=== PATIENT | female | born 1945 | race Caucasian/White ===

== ENCOUNTER → 2017-04-09 | Outpatient (CLI) | payer OTHER, MEDICARE ==
[~2017-04-09] MED LIST: AMARYL4 MG PO; AMITRIPTYLINE H25 M2 PO; AMITRIPTYLINE H25 M3 PO; ASPIRIN325 PO; BENADRYL25 MG PO; BENZEDREX NS; CENTRUM SILVER1 EAC1 PO; CENTRUM SILVER1 EAC4 PO; COMPOUND TOP; CVS OMEGA-3 KR1 EACH PO; DIABETA 5MG TABL5 MG PO; DIFLUCAN150 MG PO; DOXYCYCLINE 10100 MG PO; DULCOLAX STOOL100 MG PO; DULERA 100 MCG/13 GM INH; ENOXAPARIN40 MG/0.1 SUBQ; EXCEDRIN CAPLE1 EACH PO; FLECAINIDE ACET50 M1 PO; FLONASE 0.05%50 MCG NASAL; HUMALOG100 UNIT/1 SUBQ; HYDROCODON-ACE1 EAC5 PO; IBUPROFEN 200200 M1 PO; INVANZ1 GM IV; KEFLEX500 MG PO; LANTUS SUBQ; LOSARTAN-HCTZ1 EAC1 PO; METHYLPREDNISOLO4 M1 PO; MOBIC7.5 MG PO; MUCINEX DM ER1 EACH; MUCINEX TA600 MG/TA2 PO; NEURONTIN 300300 M1 PO; NYSTATIN 1100000 U/M PO; PERCOCET PO; PRADAXA150 MG PO; PROTONIX40 M1 PO; SAVELLA100 MG PO; SAVELLA50 MG PO; TYLENOL325 MG PO; VENTOLIN HFA 1818 GM; VITAMIN D31000 UNI2 PO; ZYRTEC10 M5 PO; [UNRECOGNIZED DRUG - OTHER]
== END ==
LOC: CAT 07:54
DX: I27.2 Other secondary pulmonary hypertension (principal); R06.09 Other forms of dyspnea; M79.605 Pain in left leg; M79.89 Other specified soft tissue disorders

== ENCOUNTER → 2017-04-14 | Outpatient (CLI) | payer OTHER, MEDICARE | LOC: MRI 08:25 | DX: S86.012A Strain of left Achilles tendon, initial encounter (principal); X58.XXXA Exposure to other specified factors, initial encounter; Y93.89 Activity, other specified; Y92.89 Other specified places as the place of occurrence of the external cause; Y99.8 Other external cause status ==

== ENCOUNTER → 2017-06-04 | Outpatient (CLI) | payer OTHER, MEDICARE | LOC: ULTRA 15:11 | DX: M79.669 Pain in unspecified lower leg (principal); M79.89 Other specified soft tissue disorders ==

== ENCOUNTER 2017-06-12 15:15 | Inpatient (IN) | payer OTHER, MEDICARE ==
[~2017-06-12] VITALS: Ht 160 cm; Wt 114.9 kg
--- NOTE | ~2017-06-12 | 2DMMODE ---
[facility] [address] [place] [address] 2 D/M-MODE ECHOCARDIOGRAM Name: VALERIA CARMONA Room #: 206-P [facility] IN ..#: [id number] Admission: 06/12/17 Attend Phys: Ochoa Nava Discharge: Date of : 47 Date of Service: 06/13/17 0952 Report #: [id number] THIS REPORT FOR: //name// APPROVED REPORT Study performed: 06/13/2017 08:44:04 EXAM: Comprehensive 2D, Doppler, and color-flow Echocardiogram Patient Location: Bedside Room #: 206 Status: routine BSA: 2.17 HR: 50 bpm BP: 103/45 mmHg Other Information Study Quality: Adequate Indications Atrial Fibrillation Dyspnea 2D Dimensions RVDd: 37.97 mm LVEF(%): 67.38 (>50%) IVSd: 10.40 (7-11mm) LVOT Diam: 18.10 (18-24mm) LVDd: 49.14 mm PWd: 9.90 (7-11mm) Ascending Ao: 27.47 (22-36mm) LVDs: 30.71 (25-40mm) Aortic Root: 26.52 mm IVC: 29.00 mm Pettit's LVEF: 67.38 % Volumes Left Atrial Volume (Systole) Single Plane 4CH: 61.45 mL Single Plane 2CH: 69.35 mL LA ESV Index: 36.00 mL/m2 Aortic Valve AoV Peak Daquan.: 1.75 m/s AO Peak Gr.: 12.21 mmHg LVOT Max P.26 mmHg LVOT Max V: 1.03 m/s TENA Vmax: 1.52 cm2 Mitral Valve MV Decel. Time: 161.76 ms MV E Max Daquan.: 1.47 m/s [facility] [address] [place] [address] 2 D/M-MODE ECHOCARDIOGRAM Name: VALERIA CARMONA Room #: 206-P [facility] IN .R.#: [id number] Admission: 06/12/17 Attend Phys: Ochoa Nava Discharge: Date of : 47 Date of Service: 06/13/17 0952 Report #: [id number] IVRT: 56.52 ms Pulmonary Valve PV Peak Daquan.: 1.03 m/s PV Peak Gr.: 4.27 mmHg Tricuspid Valve TR Peak Daquan.: 2.73 m/s TR Peak Gr.: 30.07 mmHg PA Pressure: 45.00 mmHg Left Ventricle The left ventricle is normal size. There is normal LV segmental wall motion. There is normal left ventricular wall thickness. The left ventricular systolic function is normal. The left ventricular ejection fraction is within the normal range. LVEF is 50-55%. This study is not technically sufficient to allow evaluation of the LV diastolic function due to atrial fibrillation. Right Ventricle The right ventricle is normal size. The right ventricular systolic function is normal. Atria Left atrium is dilated. Right atrium is at the upper limits of normal. Aortic Valve The aortic valve is normal in structure. No aortic regurgitation is present. There is no aortic valvular stenosis. Mitral Valve The mitral valve is normal in structure. Mild mitral regurgitation. No evidence of mitral valve stenosis. Tricuspid Valve The tricuspid valve is normal in structure. There is trace to mild tricuspid regurgitation. The right atrial pressure is estimated at 35mmHg. There is mild pulmonary hypertension. Pulmonic Valve The pulmonary valve is normal in structure. There is no pulmonic valvular regurgitation. Great Vessels The aortic root is normal in size. The inferior vena cava is dilated with no inspiratory collapse. [facility] [place] [address] 2 D/M-MODE ECHOCARDIOGRAM Name: VALERIA CARMONA Room #: 206-P [facility] IN ..#: [id number] Admission: 06/12/17 Attend Phys: Ochoa Nava Discharge: Date of : 47 Date of Service: 06/13/17 0952 Report #: [id number] Pericardium There is no pericardial effusion. <Conclusion> The left ventricular systolic function is normal. There is normal LV segmental wall motion. LVEF is 50-55%. Left atrium is dilated. The aortic valve is normal in structure. No aortic valvular stenosis or insufficiency The mitral valve is normal in structure. Mild mitral regurgitation. Pulmonary artery pressure of 35mmHg No pericardial effusion <ELECTRONICALLY SIGNED> By: Kvng Rose MD, FACC 06/13/17951 1 1 Kvng Roes MD, FACC /INF
--- NOTE | ~2017-06-12 | H ---
[facility] [place] [address] [place] [address] HISTORY AND PHYSICAL Name: VALERIA CARMONA Room #: 206-P ADM IN M.R.#: [id number] Admission: 06/12/17 Attend Phys: Ochoa Nava MD Discharge: Date of : 47 Report #: [id number] THIS REPORT FOR: //name// CC: Ochoa Harden She is being admitted to the hospital today. REASON FOR ADMISSION: Congestive heart failure. HISTORY OF PRESENT ILLNESS: The patient is a 71-year-old female who I follow for permanent atrial fibrillation. She also has a history of diabetes, hypertension, obesity, obstructive sleep apnea with an echocardiogram back on 01/09/2016, showing an EF of 50-55%. When I last saw the patient, she was doing well. She was trying to lose some weight. She comes in today for evaluation of worsening shortness of breath, fatigue, and lower extremity edema. She reports that she broke her left foot and tore ligament in this foot approximately several months ago. Her foot has been in a cast. She has had worsening lower extremity swelling, more so on the left foot. Last week, she was seen by Dr. Harden and was noted to have the worsening swelling and he did a venous ultrasound that showed no DVT in the left leg. She denies any chest pain or chest tightness, but she has been experiencing increased exertional dyspnea. She has also been experiencing PND and orthopnea, which prevents her from sleeping. She denies presyncope or syncope. PAST MEDICAL HISTORY: As above. SOCIAL HISTORY: Does not smoke. FAMILY HISTORY: Noncontributory. ALLERGIES: Include PENICILLIN, AUGMENTIN, and TAPE. CURRENT MEDICATIONS: Include: 1. Albuterol. 2. Pradaxa 150 b.i.d. 3. Mucinex DM. 4. Lasix 40 a day. 5. Amaryl. 6. Insulin Glargine 40 mg under the skin at night. 7. Insulin lispro. 8. Toprol 50. 9. Dulera 2 puffs daily. 10. Zanaflex. 11. Potassium chloride. PHYSICAL EXAMINATION: [facility] [address] [place] [address] HISTORY AND PHYSICAL Name: VALERIA CARMONA Room #: 206-P [facility] IN [facility].#: [id number] Admission: 06/12/17 Attend Phys: Ochoa Nava MD Discharge: Date of : 47 Report #: [id number] VITAL SIGNS: Today, blood pressure 142/82, , weight is 117 kg, sats are 97%. Her prior weight back in November was 243 pounds and now she is up to 259 pounds. GENERAL: She appears to be slightly fatigued and with labored breathing. HEENT: Oropharynx is clear. Her sclerae are anicteric. NECK: Supple with no thyromegaly. HEART: Irregularly irregular with no murmurs. She does have positive JVD sitting at 90 degrees and she does have a positive hepatojugular reflex. ABDOMEN: Soft, nontender, and nondistended. There is no hepatosplenomegaly noted. EXTREMITIES: There is 3+ bilateral lower extremity edema and this is somewhat worse on the left foot. NEUROLOGIC: Her cranial nerves 2-12 are intact. LABORATORY DATA: Her EKG today in clinic shows atrial fibrillation, heart rate of 63 beats per minute with no ischemic changes. ASSESSMENT: 1. Acute congestive heart failure, likely diastolic heart failure in nature. 2. Atrial fibrillation. 3. Diabetes mellitus. 4. Hypertension. 5. Morbid obesity. 6. Obstructive sleep apnea. PLAN: The patient will be admitted to the hospital with acute congestive heart failure, which is likely secondary to diastolic dysfunction. We will initiate aggressive IV diuresis. We will obtain basic laboratories and have her undergo an echocardiogram to rule out any LV dysfunction. If we do notice LV dysfunction, we will have her undergo a possible stress testing versus cardiac catheterization. Thank you for allowing me to participate in her care. By: [id number] Ochoa Nava MD /nt
--- NOTE | ~2017-06-12 | D ---
[facility] [place] [address] [place] [address] DISCHARGE SUMMARY Name: VALERIA CARMONA Room #: 206-P [facility]..#: [id number] Admission: 06/12/17 Attend Phys: Ochoa Nava MD Discharge: 06/14/17 Date of : 47 Report #: [id number] THIS REPORT FOR: //name// [facility]: [facility] DATE OF SERVICE: 06/14/2017 DISCHARGE DIAGNOSES: 1. Diastolic heart failure. 2. Chronic lower extremity edema, likely due to venous insufficiency. 3. Permanent atrial fibrillation. 4. Obesity. 5. Hypertension. 6. Sleep apnea. 7. Diabetes mellitus. HISTORY OF PRESENT ILLNESS: The patient is a 71-year-old female who I follow for permanent atrial fibrillation, who has been on a rate control strategy. Over the past several months, she has noticed increased swelling in the lower extremities. She has been on diuretics without much improvement. She has also been describing increased shortness of breath as well as paroxysmal nocturnal dyspnea and orthopnea. Based on these symptoms, I decided to admit her to the hospital for management. HOSPITAL COURSE: The patient underwent echocardiogram showing normal ejection fraction. She is in permanent atrial fibrillation. On telemetry, she remained in atrial fibrillation with controlled rates. We IV diuresed her with Lasix 80 twice a day. Her swelling improved somewhat, but did not resolve. I think that she likely has a component of diastolic heart failure superimposed with chronic venous insufficiency. On the day of discharge, her symptoms were improved. The plan was to see her back in clinic in 2 weeks for reevaluation. I have discussed the importance of considering weight loss options including possible weight loss surgery. I have also discussed that she likely has a component of chronic venous insufficiency, which is making her swelling worse. I have recommended that we perform venous ultrasounds for management of these symptoms. If these are abnormal, I may send her to Dr. Ku for further evaluation and possible intervention. DISCHARGE MEDICATIONS: The same as what she came in on. By: [id number] [id number] Ochoa Nava MD /nt
--- NOTE | ~2017-06-12 | EKG ---
[address] [address] ELECTROCARDIOGRAM REPORT Name: VALERIA CARMONA Room #: 206- ADM IN M.R.#: [id number] Admission: 06/12/17 Attend Phys: Ochoa Nava MD Discharge: Date of : 47 Report #: [id number] THIS REPORT FOR: //name// [facility] Test Date: 2017-06-14 Test Time: 06:44:42 Pat Name: VALERIA CARMONA Department: Room: 206 Gender: F Net Web Developer: Brittany : 1945 Requested By: Ochoa Nava Order Number: [id number] MD: Rohit Prasad Measurements Intervals [place] [address] Rate: 54 P: SC: QRS: 44 QRSD: 98 T: -2 QT: 457 QTc: 434 Interpretive Statements Atrial fibrillation Borderline T abnormalities, diffuse leads Compared to ECG 02/02/2016 12:45:10 T-wave abnormality now present Sinus rhythm no longer present First degree AV block no longer present Electronically Signed On 06-14-2017 11:10:44 CDT by Rohit Prasad [email or web address] <ELECTRONICALLY SIGNED> By: Rohit Prasad MD 06/14/17 1110 0644 [id number] Rohit Prasad MD /TAINA
[2017-06-12 15:49] VITALS: BP 156/76
[2017-06-12 16:41] LABS: HEMOGLOBIN 12.3 gm/dL (12.0-15.0); MCH 29.7 pg (26.0-34.0); MCHC 32.5 g/dL (28.0-37.0); MCV 91.5 fL (80.0-100.0); RBC 4.15 mil/uL (4.20-5.00); RDW 14.8 % (10.5-14.5); WBC 12.2 thou/uL (4.0-11.0)
[2017-06-12 17:07] LABS: ALBUMIN 3.6 g/dL (3.4-5.0); CALCIUM 9.4 mg/dL (8.5-10.1); CREATININE 1.1 mg/dL (0.6-1.0); INR 1.2; PROTIME 12.6 Seconds (9.3-11.4); TOTAL BILIRUBIN 0.7 mg/dL (<0.1-1.0); TOTAL PROTEIN 7.2 g/dL (6.4-8.2)
[2017-06-12 20:00] VITALS: BP 124/55
[2017-06-12] MEDS ORDERED: CENTRUM SILVER1 EAC6 PO (22:56)
[2017-06-12] MEDS ORDERED: LASIX 20 MG TAB20 MG PO (23:00)
[2017-06-12 23:01] VITALS: BP 108/44
[2017-06-12] MEDS ORDERED: POTASSIUM20 PO (23:01)
[2017-06-12] MEDS ORDERED: MAGOX 400400 MG PO (23:03)
[2017-06-13] VITALS (7 sets, daily range): BP systolic 95–125; BP diastolic 45–59
[2017-06-13] MEDS ORDERED: TOPROL XL25 MG PO (04:01)
[2017-06-13 08:40] LABS: CALCIUM 9.2 mg/dL (8.5-10.1); CREATININE 1.1 mg/dL (0.6-1.0); POTASSIUM 3.7 mmol/L (3.5-5.1)
[2017-06-14 03:39] LABS: ABSOLUTE NEUTROPHILS 6.8 thou/uL (1.4-8.2); BASOPHILS 0.6 % (0.0-2.0); EOSINOPHILS 3.9 % (0.0-3.0); HEMATOCRIT 37.1 % (37.0-47.0); MCH 29.9 pg (26.0-34.0); MCHC 32.3 g/dL (28.0-37.0); MCV 92.6 fL (80.0-100.0); MONOCYTES 11.9 % (1.0-8.0); PLATELET COUNT 242 thou/uL (150-400); POLYS 59.6 % (36.0-66.0); RDW 14.6 % (10.5-14.5); WBC 11.4 thou/uL (4.0-11.0)
[2017-06-14 03:46] VITALS: BP 117/48
[2017-06-14 03:54] LABS: CREATININE 0.9 mg/dL (0.6-1.0); POTASSIUM 3.5 mmol/L (3.5-5.1)
[2017-06-14 04:23] LABS: MANUAL DIFF NO
[2017-06-14 07:45] VITALS: BP 148/66
[2017-06-14 12:08] VITALS: BP 148/66
== END 2017-06-14 13:21 | disposition home or self-care (01) | DRG 292 ==
LOC: 2N 15:15
PROVIDERS: Internal Medicine Cardiovascular Disease; Nurse Practitioner Gerontology
DX: I11.0 Hypertensive heart disease with heart failure (principal); Z68.41 Body mass index [BMI] 40.0-44.9, adult; I50.31 Acute diastolic (congestive) heart failure; E11.9 Type 2 diabetes mellitus without complications; G47.33 Obstructive sleep apnea (adult) (pediatric); I48.2 Chronic atrial fibrillation; I87.2 Venous insufficiency (chronic) (peripheral); E66.01 Morbid (severe) obesity due to excess calories; Z88.0 Allergy status to penicillin; Z88.1 Allergy status to other antibiotic agents; Z91.040 Latex allergy status
CPT/HCPCS: 10081

== ENCOUNTER → 2018-02-06 | Outpatient (CLI) | payer OTHER, MEDICARE ==
[~2018-02-06] VITALS: Ht 157.5 cm; Wt 102.1 kg
[~2018-02-06] MED LIST changes: +CENTRUM SILVER1 EAC6 PO; +KRILL OIL 5001 EACH PO; +LASIX 20 MG TAB20 MG PO; +MAGOX 400400 MG PO; +MELATONIN5 M1 PO; +MIRALAX17 GM PO; +MUCINEX600 MG PO; +NORCO 10-325 T1 EACH PO; +PERCOCET 10-321 EAC1 PO; +POTASSIUM20 PO; +STOOL SOFTENER100 M1 PO; +TOPROL XL25 MG PO; +VITAMIN D32000 UNI1 PO; +ZANAFLEX4 MG PO
--- NOTE | ~2018-02-06 | HPC ---
[facility] [address] PAIN MANAGEMENT CONSULTATION Name: MATHEWVALERIA E Room #: REG ANU Derrick#: [id number] Admission: 02/06/18 Attend Phys: Chris Quesada MD Discharge: Date of : 47 Report #: [id number] THIS REPORT FOR: //name// CC: Chris Harden DATE OF SERVICE: 02/06/2018 PRIMARY CARE PHYSICIAN: Adilson Harden M.D. CHIEF COMPLAINT: Pain down into the low back and into the buttocks down into the left leg. HISTORY OF PRESENT ILLNESS: The patient is a 72-year-old female who has been referred to the pain clinic for evaluation of back and leg pain. The patient states that she is having some pain and discomfort, which has worsened over the last few months. She is experiencing some spasms, numbness, weakness and rates her pain as a 10/10. Walking is quite problematic. Bending, sitting is problematic. The patient has started using a walker because of the intensity of the pain. It radiates down the lower portion of her back into her left buttocks and into the posterior portion of her thigh. She has had some pain similar to this in the past. She has not had back surgery. She has tried hydrocodone. She has found that this to be ineffective in controlling her pain. She does have a history of diabetes. ALLERGIES: RASH WHEN TAKING AUGMENTIN. CURRENT MEDICATIONS: MiraLax 77 grams daily, Docusate stool softener 100 mg t.i.d., Krill oil 500 mg daily, tizanidine 4 mg q. 6 hours p.r.n., melatonin 5 mg at bedtime, Mucinex 600 mg q.12 hours, vitamin D3, hydrocodone 10/325 one p.o. q. 6 hours p.r.n., metoprolol XL 25 mg total of 50 mg daily, magnesium 400 mg, Centrum Silver women, Pradaxa 150 mg b.i.d., Benadryl 25 mg, Dulera 100/5 inhaler b.i.d., Tylenol 325 two tablets at bedtime, insulin sliding scale, Lantus insulin 48 units subcutaneously at bedtime, Amaryl 4 mg b.i.d., losartan/hydrochlorothiazide 100/25 mg daily. PAST MEDICAL HISTORY: 1. Adult onset diabetes, tbyf-zl-qxiegdrn peripheral neuropathy affecting lower legs. 2. History of swelling in the lower legs. 3. Cervical degenerative disease with herniated disk at C5-C6. 4. History of esophagitis in the past. 5. Adenomatous polyps: 2011. 6. Fibromyalgia. PAST SURGICAL HISTORY: Cervical removal of left ganglion cyst 1972, cervical [facility] [address] [place] [address] PAIN MANAGEMENT CONSULTATION Name: VALERIA CARMOAN Room #: REG ANU Meza#: [id number] Admission: 02/06/18 Attend Phys: Chris Quesada MD Discharge: Date of : 47 Report #: [id number] decompression at C5-C6 in 2003. SOCIAL HISTORY: She is . Denies use of tobacco. Denies use of alcoholic access. LABORATORY DATA: 1. MRI of lumbar spine dated 02/04/2018 at L3-L4, there is mild degenerative disk bulging and moderate bilateral ligamentum flavum thickening, which leads to stable moderate central canal stenosis. There is no focal disk herniation. There is snko-xx-lvfioren bilateral facet arthropathy. There is very mild right and no significant left neural foraminal stenosis. 2. L4-L5, there is mild generalized disk bulge and mild anterolisthesis without change. There is moderate ligamentum flavum thickening and moderate facet arthropathy bilaterally. There is moderate to severe central canal stenosis without change. There is moderate to right neural foraminal stenosis with no interval change. There is stable mild left neural foraminal stenosis. 3. At L5-S1, there is a mild left eccentric generalized disk bulge near the upper aspect of the left lateral recess with [id number]-qc-[id number] stenosis, accentuated by congenital narrowing. There is advanced left facet arthropathy and severe left neural foraminal stenosis, slightly progressed. There is minimal right neural foraminal narrowing. PAIN CLINIC ASSESSMENT: 1. The patient does have some cervical arthritic changes, status post fusion C5/C6. 2. Height 5 feet 2 inches, weight 225 pounds, BMI is 41. 3. Vital signs: Blood pressure 117/52. 4. Pulse 60, respiratory rate 16, room air saturation 97%. 5. Pain intensity 10/10. 6. Fall risk. The patient has not fallen in the last 3 months. She did state that she fell slightly hard on her left side back in July 2017. 7. Blood thinner. The patient is on Pradaxa. 8. History of hypertension. The patient is being treated for hypertension. 9. Opioid therapy greater than 6 weeks. The patient is not on opioid medications from the pain clinic for greater than 6 weeks. 10. Risk assessment tool. 11. Low for use of opioid medication. 12. Functional assessment tool 68/70 showing severe impediment of activities of daily living secondary to the pain. 12. Recreational drug use. The patient denies use of recreational drugs. 13. Tobacco: The patient never smokes tobacco. 14. Alcohol use. The patient denies use of alcoholic beverages. PHYSICAL EXAMINATION: GENERAL: The patient is a well-developed white female, appears her stated age. She is alert and oriented x 3. Her speech is fluent, affect appears [facility] [address] [place] [address] PAIN MANAGEMENT CONSULTATION Name: ROHIT CARMONAVEDA Leigh Room #: [facility]#: [id number] Admission: 02/06/18 Attend Phys: Chris Quesada MD Discharge: Date of : 47 Report #: [id number] appropriate. HEENT: Normocephalic, atraumatic. Extraocular eye muscles intact. Sclerae 9 and. Hearing is within normal limits. Mucous membranes are moist. NECK: Without adenopathy or JVD. The patient has a significant posterior spinal incision which is well healed, status post surgery to the neck area in the past. HEART: Regular rate. CHEST: Clear to auscultation without rhonchi or rales. ABDOMEN: Protuberant. EXTREMITIES: Upper extremity muscle strength is judged to be 5/5 for the major muscle groups in the upper extremity without sensory changes. Lower extremity, the patient needs assistance in going from the sitting to the standing position. She uses a walker. Forward bending, left and right lateral bending, lumbar extension are problematic secondary to the patient's pain and discomfort. She notes some pain and discomfort in her knee. Feels that there is a clicking/popping sound that she noticed. Notes that there is pain and discomfort in the left sciatic area with pain radiating down into the L5-S1 distribution with muscle contractions with her quite severe. The patient states that the pain becomes quite problematic with these muscle spasms at night, which awakened her from sleep and cause her to pain. Denied having difficulty sleeping secondary to the pain. IMPRESSION: 1. Lumbar radiculopathy with pain in the left L5-S1 dermatomal distribution. 2. Diabetes mellitus. 3. Wwxv-dk-eimwqdxk peripheral neuropathy affecting the lower extremities. 4. Adult onset diabetes. 5. History of herniated cervical disk at C5-C6. 6. History of esophagitis. 7. Adenomatous polyps: 2012. 8. History of fibromyalgia. RECOMMENDATIONS: We will proceed with a lumbar epidural steroid injection. The patient is on or Plavix or Pradaxa at this point. She will stop her Pradaxa. She will check with her primary and within that regard. If she is able to come off the medication. She was then returned to the pain clinic in about 5 days and undergo an epidural steroid injection. She has been given a script for, oxycodone 5 mg to 10 mg 1 p.o. t.i.d. Hopefully, this is helpful with control of the pain. She states that the use of hydrocodone has been ineffective. We would like to thank you for letting us participate in her care. We hope she continues to improve. By: [id number] Chris Quesada MD /BRIONNA
[2018-02-06 12:28] VITALS: BP 117/52
== END ==
LOC: PAIN 09:38
DX: M47.27 Other spondylosis with radiculopathy, lumbosacral region (principal); E11.9 Type 2 diabetes mellitus without complications; G62.9 Polyneuropathy, unspecified; M79.7 Fibromyalgia; Z88.1 Allergy status to other antibiotic agents

== ENCOUNTER → 2018-02-11 | Outpatient (CLI) | payer OTHER, MEDICARE ==
[~2018-02-11] VITALS: Ht 157.5 cm; Wt 105.3 kg
--- NOTE | ~2018-02-11 | HPC ---
[facility] [place] [address] [address] PAIN MANAGEMENT CONSULTATION Name: MATHEWVALERIA E Room #: REG [facility] Derrick#: [id number] Admission: 02/11/18 Attend Phys: Chris Quesada MD Discharge: Date of : 47 Report #: [id number] THIS REPORT FOR: //name// CC: Chris Harden MD DATE OF SERVICE: 02/11/2018 FOLLOWUP COMPLAINT: Here for the epidural injection. FOLLOWUP HISTORY: The patient is a 72-year-old female who has been referred to the pain clinic because of back and leg pain. She had been experiencing pain and discomfort, which has worsened over the last few months. She has had problems with muscle spasms, numbness, weakness and pain level has been quite problematic. She has described it as a 10/10. It radiates down into her low back and into the left leg. There is cramping in the back of her leg with some pain down into the calf as well. She is using a walker because of the worsened pain. She has not had surgery. She has tried hydrocodone. She feels that this medication is not very effective in controlling her pain. She was given Percocet. Feels that the pain still is problematic in spite of use of Percocet. She has returned today for an epidural steroid injection. ALLERGIES: AUGMENTIN -- rash. CURRENT MEDICATIONS: MiraLax 77 grams daily, docusate, stool softener 100 mg t.i.d., Krill oil 500 mg daily, tizanidine 4 mg q. 6 hours p.r.n., melatonin 5 mg at bedtime, Mucinex 600 mg q.12 hours, vitamin D3, hydrocodone 10/325 one p.o. q. 6 hours p.r.n. pain, oxycodone 5 mg 1 p.o. q. 4-6 hours p.r.n. pain, metoprolol XL 25 mg daily, magnesium 400 mg, Centrum Silver Women, Pradaxa 150 mg b.i.d., Benadryl 25 mg, Dulera 100/5 inhaler b.i.d., Tylenol 325 two tablets at bedtime, insulin sliding scale, Lantus insulin 48 mg subcutaneous at bedtime, Amaryl 4 mg b.i.d., losartan/hydrochlorothiazide 100/25 daily. PAIN CLINIC ASSESSMENT: 1. The patient has cervical arthritic changes, status post fusion at the C6-C7 area, The osterior approach. 2. Height 5 feet 2 inches, weight 232 pounds, BMI is 42. 3. Vital Signs: Blood pressure 107/58, pulse 66, respiratory rate 16, room air saturation 98%, Pain intensity 3/10. 4. Fall risk. The patient has not fallen. She does use a walker to help ambulate. 5. Blood thinner. The patient is on Pradaxa. She has stopped taking this medication and has not taken it for about 5-7 days. 6. History of hypertension. The patient is being treated for hypertension. 7. Opioid therapy greater than [address] [address] PAIN MANAGEMENT CONSULTATION Name: VALERIA CARMONA [id number] Admission: 02/11/18 Attend Phys: Chris Quesada MD Discharge: Date of : 47 Report #: [id number] 8. Risk assessment tool, low risk 0-3. 9. Functional assessment tool 68/70 shows intense problems with pain with activities of daily living. 10. Recreational drug use. The patient denies use of recreational drugs. 11. Tobacco: The patient denies use of tobacco. 12. Alcoholic beverages. The patient denies use of alcoholic beverages. PHYSICAL EXAMINATION: GENERAL: The patient is a well-developed white female. She appears her stated age. She is slightly obese. She is alert and oriented x 3. Speech is fluent. Her affect is appropriate. HEENT: Normocephalic, atraumatic. Extraocular eye muscles intact. Sclerae nonicteric. Hearing is within normal limits. Mucous membranes are moist. NECK: Without adenopathy or JVD. The patient has a well-healed scar on the anterior portion of her neck as well as in the posterior portion of her neck. HEART: Regular rate. S1, S2. CHEST: Clear to auscultation without rhonchi or rales. ABDOMEN: Protuberant. EXTREMITIES: Upper extremity strength is judged to be 5/5 for the major upper extremities without sensory changes. Lower extremity with 4+/5 muscle strength to the lower extremities. The patient has pain and discomfort with pain radiating down the left buttocks L5-S1 dermatomal distribution in the posterior portion of her left thigh and calf with complaints of muscular contractions. IMPRESSION: 1. Lumbar radiculopathy with pain in the L5-S1 dermatomal distribution. 2. Diabetes mellitus. 3. Mild to moderate peripheral neuropathy affecting the lower extremities. 4. Adult onset DM. 5. History of herniated cervical disk C6/C5. 6. History of esophagitis. 7. Adenomatous polyps 2012. 8. History of fibromyalgia. RECOMMENDATIONS: We discussed treatment options with the patient. Risks and benefits of an epidural steroid injection were again reviewed. Possible complication of the procedure, which could include but are not limited to infection, increased muscle soreness, bleeding, worsening of pain, paralysis, spinal headache were reviewed. The patient elects to proceed. PROCEDURE NOTE: The patient was helped in the fluoroscopy room. After appropriate positioning on the fluoroscopy table. Her back was sterilely prepped with a Betadine solution. Fluoroscopy using an anterior, posterior as well as a lateral view was used to identify the appropriate placement of needle. At, L5-S1 in the left paraspinous area with 0.25% bupivacaine was infiltrated. [address] [address] PAIN MANAGEMENT CONSULTATION Name: CARMONAVALERIA [id number] Admission: 02/11/18 Attend Phys: Chris Quesada MD Discharge: Date of : 47 Report #: [id number] A 17-gauge Tuohy with loss of resistance technique was used to gain access to the epidural space. There was no CSF, heme or paresthesia. Total of 80 mg Depo-Medrol, 40 mg triamcinolone and 2 mL of 0.25% bupivacaine was injected. Total of 25 seconds fluoroscopy time was used. The patient's pain was 3 at the time of discharge. There were no complications. A Band-Aid had been placed in the area of the injection. There was no bleeding. She will follow up in the future as needed. We would like to thank you for letting us participate in her care. We hope she continues to improve. <ELECTRONICALLY SIGNED> By: Chris Quesada MD 02/18/18 1326 1505 1853 Chris Quesada MD /[facility]
[2018-02-11 10:47] VITALS: BP 107/58
== END | disposition home or self-care (01) ==
LOC: PAIN 06:46
DX: M54.16 Radiculopathy, lumbar region (principal); G89.29 Other chronic pain; E11.42 Type 2 diabetes mellitus with diabetic polyneuropathy; I50.30 Unspecified diastolic (congestive) heart failure; M79.7 Fibromyalgia; Z88.8 Allergy status to other drugs, medicaments and biological substances; Z79.4 Long term (current) use of insulin; Z87.19 Personal history of other diseases of the digestive system; Z79.899 Other long term (current) drug therapy; Z98.890 Other specified postprocedural states; Z79.891 Long term (current) use of opiate analgesic; Z88.0 Allergy status to penicillin

== ENCOUNTER → 2018-06-01 | Outpatient (CLI) | payer OTHER, MEDICARE | LOC: RAD 12:56 | DX: Z12.31 Encounter for screening mammogram for malignant neoplasm of breast (principal); I10 Essential (primary) hypertension; E11.9 Type 2 diabetes mellitus without complications; J45.909 Unspecified asthma, uncomplicated; Z79.4 Long term (current) use of insulin ==

== ENCOUNTER 2018-08-06 07:39 | Emergency (ER) | payer OTHER, MEDICARE ==
[~2018-08-06] VITALS: Ht 157.5 cm; Wt 100.7 kg
--- NOTE | ~2018-08-06 | EKG ---
[address] [address] ELECTROCARDIOGRAM REPORT Name: VALERIA CARMONA [id number] Admission: 08/06/18 Attend Phys: Discharge: 08/06/18 Date of : 47 Report #: [id number] THIS REPORT FOR: //name// [facility] ED Test Date: 2018-08-06 Test Time: 07:52:00 Pat Name: VALERIA CARMONA Department: Room: Gender: F Animal Care Assistant: : 1945 Requested By: Ruth Bowers Order Number: [id number] MD: Ochoa Nava Measurements Intervals [place] Rate: 53 P: [place]: QRS: 10 QRSD: 94 T: -55 QT: 442 QTc: 415 Interpretive Statements Atrial fibrillation Nonspecific T abnormalities, diffuse leads Compared to ECG 06/14/2017 06:44:42 No significant changes Electronically Signed On 08-06-2018 14:45:51 CAFE MANAGER by Ochoa Naav [email or web address] <ELECTRONICALLY SIGNED> By: Ochoa Nava MD 08/06/18 1445 D: 11/751 1 Ochoa Nava MD /TAINA
[2018-08-06 08:14] LABS: ABSOLUTE NEUTROPHILS 5.9 thou/uL (1.4-8.2); BASOPHILS 0.8 % (0.0-2.0); EOSINOPHILS 4.3 % (0.0-3.0); HEMATOCRIT 28.4 % (37.0-47.0); HEMOGLOBIN 8.9 gm/dL (12.0-15.0); LYMPHOCYTES 19.3 % (24.0-44.0); MCH 22.9 pg (26.0-34.0); MCHC 31.4 g/dL (28.0-37.0); MCV 72.9 fL (80.0-100.0); PLATELET COUNT 352 thou/uL (150-400); POLYS 63.6 % (36.0-66.0); RDW 15.5 % (10.5-14.5); WBC 9.3 thou/uL (4.0-11.0)
[2018-08-06] MEDS ORDERED: FUROSEMIDE 40 M40 M1 PO (08:20)
[2018-08-06] MEDS ORDERED: KLOR-CON 1010 MEQ PO (08:21)
[2018-08-06] MEDS ORDERED: PRADAXA150 MG PO (08:21)
[2018-08-06 08:28] LABS: CALCIUM 9.3 mg/dL (8.5-10.1); CREATININE 0.8 mg/dL (0.6-1.0); POTASSIUM 3.8 mmol/L (3.5-5.1)
[2018-08-06 08:37] LABS: ANISOCYTOSIS 2+; MICROCYTES 2+; PLATELET ESTIMATE NORMAL
[2018-08-06 09:30] LABS: URINE BILIRUBIN NEGATIVE (Negative); URINE BLOOD NEGATIVE (Negative); URINE CLARITY CLEAR; URINE COLOR YELLOW; URINE GLUCOSE-RANDOM* NEGATIVE (Negative); URINE KETONES NEGATIVE (Negative); URINE LEUKOCYTES-REFLEX NEGATIVE (Negative); URINE NITRITE-REFLEX NEGATIVE (Negative); URINE PROTEIN (DIPSTICK) TRACE (Negative); URINE SPECIFIC GRAVITY 1.025 (1.005-1.035); URINE UROBILINOGEN 0.2 E.U./dl (0.2-1.0)
[2018-08-06 10:53] VITALS: BP 164/63
== END 2018-08-06 10:54 | disposition home or self-care (01) ==
LOC: ER 07:39
PROVIDERS: Emergency Medicine
DX: R55 Syncope and collapse (principal); I11.0 Hypertensive heart disease with heart failure; I50.9 Heart failure, unspecified; I48.91 Unspecified atrial fibrillation; M48.00 Spinal stenosis, site unspecified; E11.9 Type 2 diabetes mellitus without complications; Z88.0 Allergy status to penicillin; Z88.1 Allergy status to other antibiotic agents; Z88.8 Allergy status to other drugs, medicaments and biological substances; Z90.711 Acquired absence of uterus with remaining cervical stump; Z90.49 Acquired absence of other specified parts of digestive tract; Z79.4 Long term (current) use of insulin

== ENCOUNTER 2018-09-07 08:47 | Inpatient (IN) | payer OTHER, MEDICARE ==
[~2018-09-07] VITALS: Ht 157.5 cm; Wt 104.2 kg
[~2018-09-07 08:47] MED LIST changes: +FUROSEMIDE 40 M40 M1 PO; +KLOR-CON 1010 MEQ PO
[2018-09-07 08:48] VITALS: BP 156/79
[2018-09-07 09:35] LABS: ABSOLUTE NEUTROPHILS 7.1 thou/uL (1.4-8.2); BASOPHILS 0.6 % (0.0-2.0); EOSINOPHILS 6.4 % (0.0-3.0); LYMPHOCYTES 16.3 % (24.0-44.0); MCH 23.1 pg (26.0-34.0); MCHC 31.2 g/dL (28.0-37.0); MONOCYTES 10.7 % (1.0-8.0); PLATELET COUNT 351 thou/uL (150-400); RBC 4.32 mil/uL (4.20-5.00); RDW 19.2 % (10.5-14.5); WBC 10.7 thou/uL (4.0-11.0)
[2018-09-07 09:40] LABS: ANION GAP 10 mmol/L (7-16); BUN 17 mg/dL (7-18); CALCIUM 9.9 mg/dL (8.5-10.1); CHLORIDE 102 mmol/L (98-107); CO2 27 mmol/L (21-32); CREATININE 0.8 mg/dL (0.6-1.0); GLUCOSE 81 mg/dL (74-106); POTASSIUM 4.1 mmol/L (3.5-5.1); SODIUM 139 mmol/L (136-145)
[2018-09-07 09:49] LABS: ALBUMIN 3.6 g/dL (3.4-5.0); MAGNESIUM 2.1 mg/dL (1.8-2.4); SGOT 32 U/L (15-37); SGPT 33 U/L (30-65); TOTAL BILIRUBIN 0.6 mg/dL (<0.1-1.0); TOTAL PROTEIN 7.7 g/dL (6.4-8.2); TROPONIN-I <0.06 ng/mL (<0.06)
[2018-09-07 10:31] LABS: ANISOCYTOSIS 1+; HYPOCHROMASIA 1+; MICROCYTES 1+
[2018-09-07 10:33] LABS: URINE CLARITY CLEAR; URINE COLOR YELLOW; URINE SPECIFIC GRAVITY <= 1.005 (1.005-1.035)
[2018-09-07 10:34] LABS: URINE BILIRUBIN NEGATIVE (Negative); URINE BLOOD 2+ (Negative); URINE GLUCOSE-RANDOM* NEGATIVE (Negative); URINE KETONES NEGATIVE (Negative); URINE LEUKOCYTES-REFLEX NEGATIVE (Negative); URINE NITRITE-REFLEX NEGATIVE (Negative); URINE PROTEIN (DIPSTICK) NEGATIVE (Negative); URINE UROBILINOGEN 0.2 E.U./dl (0.2-1.0)
[2018-09-07 10:36] LABS: BACTERIA-REFLEX 1-9 Few /HPF (None Seen); CASTS None Seen /LPF (None Seen); CRYSTALS None Seen /LPF (None Seen); SQUAMOUS 0-3 Few /LPF (0-3); URINE RBC 3-10 Few /HPF (0-2); URINE WBC-REFLEX 0-5 Rare /HPF (0-5)
[2018-09-07 10:54] VITALS: BP 158/62
--- NOTE | 2018-09-07 13:37 | 2DMMODE ---
[facility] [address] [place] [address] 2 D/M-MODE ECHOCARDIOGRAM Name: VALERIA CARMONA Room #: 170-10 ADM IN .Ralph.#: [id number] Admission: 09/07/18 Attend Phys: Rahul Napier MD Discharge: Date of : 47 Date of Service: 09/07/18 1337 Report #: [id number] THIS REPORT FOR: //name// APPROVED REPORT Study performed: 09/07/2018 12:38:15 EXAM: Comprehensive 2D, Doppler, and color-flow Echocardiogram Patient Location: ER Room #: 10 Status: routine BSA: 2.07 HR: 62 bpm BP: 117/49 mmHg Rhythm: Atrial Fibrillation Other Information Study Quality: Adequate Indications Congestive Heart Failure Diabetes Atrial Fibrillation Hypertension/HDD 2D Dimensions RVDd: 37.37 mm IVSd: 10.91 (7-11mm) LVOT Diam: 19.15 (18-24mm) LVDd: 50.07 mm PWd: 9.58 (7-11mm) Ascending Ao: 25.43 (22-36mm) LVDs: 33.50 (25-40mm) Aortic Root: 27.74 mm IVC: 29.00 mm Volumes Left Atrial Volume (Systole) Single Plane 4CH: 80.63 mL Single Plane 2CH: 50.37 mL LA ESV Index: 35.00 mL/m2 Aortic Valve AoV Peak Daquan.: 2.19 m/s AO Peak Gr.: 19.24 mmHg LVOT Max P.30 mmHg LVOT Max V: 1.44 m/s TENA Vmax: 1.89 cm2 Pulmonary Valve [facility] [address] [place] [address] 2 D/M-MODE ECHOCARDIOGRAM Name: VALERIA CARMONA Room #: 170-10 ADM IN Ramos.#: [id number] Admission: 09/07/18 Attend Phys: Rahul Napier MD Discharge: Date of : 47 Date of Service: 09/07/18 1337 Report #: [id number] PV Peak Daquan.: 1.38 m/s PV Peak Gr.: 7.71 mmHg Tricuspid Valve TR Peak Daquan.: 2.68 m/s TR Peak Gr.: 28.76 mmHg PA Pressure: 39.00 mmHg Left Ventricle The left ventricle is normal size. Regional wall motion is not well visualized but grossly normal. There is normal left ventricular wall thickness. The left ventricular systolic function is normal. The left ventricular ejection fraction is within the normal range. LVEF is 65%. This study is not technically sufficient to allow evaluation of the LV diastolic function due to atrial fibrillation. Right Ventricle The right ventricle is normal size. The right ventricular systolic function is normal. Atria Left atrium is dilated. Right atrium is dilated. Aortic Valve Aortic valve is grossly normal in structure. No aortic regurgitation is present. There is no aortic valvular stenosis. Mitral Valve The mitral valve is normal in structure. Trace to mild mitral regurgitation. No evidence of mitral valve stenosis. Tricuspid Valve The tricuspid valve is normal in structure. There is trace to mild tricuspid regurgitation. Estimated PAP 40 mmHg. There is mild pulmonary hypertension. Pulmonic Valve The pulmonary valve is normal in structure. Trace pulmonic regurgitation. Great Vessels The aortic root is normal in size. IVC is dilated Pericardium There is no pericardial effusion. <Conclusion> [facility] [address] [place] [address] 2 D/M-MODE ECHOCARDIOGRAM Name: VALERIA CARMONA Room #: 170-10 ADM IN M.R.#: [id number] Admission: 09/07/18 Attend Phys: Rahul Napier MD Discharge: Date of : 47 Date of Service: 09/07/181336 Report #: [id number] The left ventricular systolic function is normal. LVEF is 65%. Both atria are dilated. Aortic valve is grossly normal in structure. No aortic valvular stenosis or insufficiency. The mitral valve is normal in structure. Trace to mild mitral regurgitation. There is trace to mild tricuspid regurgitation. Estimated pulmonary artery pressure of 40 mmHg. There is no pericardial effusion. IVC is dilated <ELECTRONICALLY SIGNED> By: Kvng Rose MD, [facility] 09/07/181336 36 36 Kvng Rose MD, FACC /INF
[2018-09-07] MEDS ORDERED: HYDROCODON-ACE1 EAC5 PO (14:21)
[2018-09-07] MEDS ORDERED: PRADAXA150 MG PO (14:22)
[2018-09-07] MEDS ORDERED: VITAMIN D31000 UNIT PO (14:23)
[2018-09-07] MEDS ORDERED: REQUIP 0.25 M0.25 MG PO (14:23)
[2018-09-07] MEDS ORDERED: BENADRYL25 MG PO (14:24)
[2018-09-07] MEDS ORDERED: KAPSPARGO SPRIN25 MG PO (14:25)
[2018-09-07] MEDS ORDERED: COZAAR 25 MG TA25 M1 PO (14:26)
[2018-09-07] MEDS ORDERED: SENNA8.6 MG PO (14:27)
[2018-09-07 14:29] VITALS: BP 109/58
--- NOTE | 2018-09-07 15:30 | NUR ---
Pt admitted to 2N from ED. Pt standing intermittently for comfort. Atrial fibrillation with controlled rate. Swelling both lower legs. Awaiting orders from Dr Napier. Pt expressing concern about getting her medications ordered. at bedside.
[2018-09-07 19:23] VITALS: BP 134/60
--- NOTE | 2018-09-07 19:30 | NUR ---
Update given to nurse Thea and orders received for some of home medications. Report given to RN assuming care of patient.
[2018-09-08] VITALS (7 sets, daily range): BP systolic 129–148; BP diastolic 51–82
[2018-09-08 04:13] LABS: ANION GAP 11 mmol/L (7-16); BUN 17 mg/dL (7-18); CALCIUM 8.6 mg/dL (8.5-10.1); CHLORIDE 106 mmol/L (98-107); CO2 26 mmol/L (21-32); CREATININE 0.9 mg/dL (0.6-1.0); GLUCOSE 175 mg/dL (74-106); MAGNESIUM 1.7 mg/dL (1.8-2.4); POTASSIUM 3.2 mmol/L (3.5-5.1); SGOT 24 U/L (15-37); SGPT 27 U/L (30-65); SODIUM 143 mmol/L (136-145); TOTAL BILIRUBIN 0.6 mg/dL (<0.1-1.0); TOTAL PROTEIN 6.4 g/dL (6.4-8.2); TROPONIN-I <0.06 ng/mL (<0.06)
[2018-09-08 04:24] LABS: HEMATOCRIT 28.4 % (37.0-47.0); HEMOGLOBIN 8.7 gm/dL (12.0-15.0); MCH 22.7 pg (26.0-34.0); MCHC 30.8 g/dL (28.0-37.0); MCV 73.7 fL (80.0-100.0); RBC 3.85 mil/uL (4.20-5.00); RDW 20.5 % (10.5-14.5); WBC 11.2 thou/uL (4.0-11.0)
--- NOTE | 2018-09-08 07:54 | NUR ---
ASSUMED PT CARE AT 1900. VSS. PT A&OX4. ASSESSMENTS AND MEDS GIVEN ARE CHARTED. PT IS STILL VERY MUCH EDEMATOUS. LASIX APPEARS TO BE EFFECTIVE SHE HAD 3650ML OF URINE OUT LAST NIGHT. PT WAS WORRIED ABOUT GETTING HER MEDS RESTARTED WHICH HAS NOW BEEN TAKEN CARE OF. PT COMPLAINS OF BACK AND SHOULDER PAIN TO WHICH HYDROCODONE IS VERY EFFECTIVE. PT IS TO BE NPO THIS MIDNIGHT FOR AN EGD ON 09/09/2018. PT IS STABLE, NO COMPLAINTS OF RESPIRATORY DISTRESS. WILL CONTINUE TO MONITOR PER POC.
--- NOTE | 2018-09-08 09:56 | EKG ---
[address] [place] [address] ELECTROCARDIOGRAM REPORT Name: VALERIA CARMONA Room #: 218-P ADM IN M.R.#: [id number] Admission: 09/07/18 Attend Phys: Rahul Napier MD Discharge: Date of : 47 Report #: [id number] THIS REPORT FOR: //name// [facility] ED Test Date: 2018-09-07 Test Time: 09:32:35 Pat Name: VALERIA CARMONA Department: Room: 218 Gender: F Health Program Manager: JEAN PAULK : 1945 Requested By: Bernard Avalos Order Number: [id number] MD: Kvng Rose Measurements Intervals [place] Rate: 62 P: [place]: QRS: 4 QRSD: 102 T: -39 QT: 423 QTc: 430 Interpretive Statements Atrial fibrillation Ventricular premature complex Nonspecific ST and T wave abnormality Compared to ECG 08/06/2018 07:52:00 Ventricular premature complex(es) now present Electronically Signed On 09-08-2018 9:56:39 SURVEY ANALYST by Kvng Rose [email or web address] <ELECTRONICALLY SIGNED> By: Kvng Rose MD, [facility] 09/08/18 0956 1 1 Kvng Rose MD, [facility] /EPI
--- NOTE | 2018-09-09 00:52 | NUR ---
ASSUMED CARE OF PT AT SHIFT CHANGE. ASSESSMENTS CHARTED. MEDS GIVEN PER NOV. PT AOX4, VSS, C/O PAIN--MANAGED WITH PO PAIN MEDS. DENIES CHEST PAIN. O2 SATS WNL ON ROOM AIR, NO S/SX OF CARDIAC OR RESP DISTRESS NOTED. URINE OUTPUT ADEQUATE. PLAN IS FOR PT TO HAVE EGD IN AM. PT RESTING WELL DURING NIGHT. WILL CONTINUE TO MONITOR AND FOLLOW POC.
[2018-09-09 04:05] VITALS: BP 143/66
[2018-09-09 04:15] LABS: CALCIUM 8.8 mg/dL (8.5-10.1); POTASSIUM 3.9 mmol/L (3.5-5.1)
[2018-09-09 06:58] VITALS: BP 142/57
[2018-09-09 11:24] VITALS: BP 139/58
--- NOTE | 2018-09-09 12:44 | NUR ---
Nutrition: assess d/t consult for weight gain/edema. Pt admitted for swelling and SOB. Hx of CHF, HTN. Pt had lost ~60 lbs in past 6 months, but gained 30 lbs recently, mainly fluid. Pt uses [employer] at home and gets low sodium meals. She actively avoids processed foods and added sodium. Her appetite is good and she was eating lunch. Provided info on low sodium/cholesterol diet. She already follows many of the suggestions. Consider low risk.
--- NOTE | 2018-09-09 15:04 | NUR ---
WOUND CONSULT: PT. WAS SEEN TODAY BY DR. BOWENS AND MYSELF. PT. HAS CELLULITIS WITH LYMPEDEMA TO BILATERAL LOWER EXTREMITYS. PT. HAS SEEN DR. ROBISON IN THE PAST FOR VENOUS INSUFICENCY. RECOMMENDATIONS: LYMPEDEMA WRAPS TO BILATERAL LOWER EXTREMITYS. PT. AND STAFF NURSE WERE INSTRUCTED ON WOUND CARE.
--- NOTE | 2018-09-09 17:20 | NUR ---
ASSUMED CARE OF PT AT 0700. PT A&OX4, UP AD JENNIFER WITH WALKER. PT HAS PAIN PARTIALLY CONTROLLED WITH MEDICATION. PT HAS HOPSON FOR ACCURATE I&O WHILE DIURESING. PT IS AFIB IN 70'S ON TELEMETRY. DR. VALLE DISCONTINUED TELEMETRY AND WROTE THAT PT COULD GO TO SR. SUITES. PT TAKEN TO SR SUITES ROOM 226 AT APPROX 1715. REPORT GIVEN TO NURSE JENNIE. IV AND HOPSON NOT REMOVED.
[2018-09-09 18:33] VITALS: BP 133/62
--- NOTE | 2018-09-10 04:40 | NUR ---
patients cares were assumed at shift shan. patietnt was assessed and meds were passed. hourly rounding was done and patient appered to be sleeping. the bed alarm is on and the bed is in a low and locked position,
[2018-09-10 08:24] LABS: HEMATOCRIT 30.9 % (37.0-47.0); HEMOGLOBIN 9.6 gm/dL (12.0-15.0); MCH 23.2 pg (26.0-34.0); MCV 74.6 fL (80.0-100.0); RBC 4.15 mil/uL (4.20-5.00); RDW 21.3 % (10.5-14.5); WBC 10.2 thou/uL (4.0-11.0)
[2018-09-10 08:33] LABS: CALCIUM 9.1 mg/dL (8.5-10.1); CREATININE 0.8 mg/dL (0.6-1.0); POTASSIUM 3.7 mmol/L (3.5-5.1)
--- NOTE | 2018-09-10 09:24 | NUR ---
ASSUMED PT CARE AT 0700. ASSESSED PT AT 0830. PT UP ON SIDE OF BED. HAD BEEN WALKING HALLS AND TOLERATED WELL. PT IS ALERT/ORIENTED X4, PLEASANT. WOULD LIKE PAIN MEDICATION AT 1000. RATES PAIN IN BACK/LEFT LEG 5/10 AND HEADACHE 4/10. PT ALSO STATES SHE IS HAVING LOOSE STOOLS. OTHERWISE NO NEW CONCERNS. ASSESSMENT IS CHARTED. VITAL SIGNS STABLE. WILL CONTINUE WITH CURRENT PLAN OF CARE.
[2018-09-10 10:00] VITALS: BP 145/76
--- NOTE | 2018-09-10 10:30 | NUR ---
met with patient who is up ambulating in room. Sp at bedside. 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 She admits with sarah. Patient has cellulitis and today to been seen by OT for lymphadema wraps. Patient reports her first time to have. Discussed HH at dc. [facility] have lymphadema certified therapist. Patient not interested in HH care. She reports she wants to care for herself. She can f/u as outpatient as well. Anticipate no dc needs cm avail and following.
[2018-09-10 11:44] LABS: % SATURATION 6 % (20-39); IRON 28 ug/dL (50-170); TIBC 443 ug/dL (250-450)
--- NOTE | 2018-09-10 14:27 | NUR ---
PT DOING WEL THIS SHIFT. OT WRAPPED LEGS FOR LYMPHEDEMA. PAIN WELL CONTROL WITH CURRENT REGIMINE. PT CONCERNED ABOUT INSLULIN REGIMINE HERE CERTAIN BLOOD SUGAR READINGS DON'T REQUIRE INSULIN. PT REQUESTED HER HOME SLIDING SCALE BE ORDERED. PT ALSO CONCERNED THE CARB CONTROL DIET HERE IS NOT CARB CONTROL. PHYSICIAN NOTIFIED AND AN ORDER OBTAINED FOR HOME SLIDING SCALE. ENCOURAGED PT TO MAKE SURE SHE ORDERS HER OWN FOOD SO SHE CAN WATCH THE CARBS. PT ALSO CONTINUES TO HAVE HOPSON. PT STATES DR NICHOLS SAID SHE COULD HAVE IT UNTIL TOMORROW SHE IS STILL ON 80MG LASIX IV.
--- NOTE | 2018-09-10 16:06 | PATH ---
[facility] [place] [address] PATHOLOGY RPT PROCEDURE Name: MATHEWJENNIFER Leigh Room #: 226-P ADM IN M.R.#: [id number] Admission: 09/07/18 Date of : 47 Discharge: Report #: [id number] Path Case #: [id number] [facility] Accession Number: [id number] . 01 Material submitted: . PART A: BX-RANDOM GASTRIC PART B: BX-ANTRAL ULCER . 01 Clinical history: . Nausea Gastritis, gastric ulcer A: Rule out H. pylori . 02 Diagnosis: A. Gastric mucosa, random gastric, rule out H. pylori, endoscopic biopsy: - Mild chronic inflammation. - Negative for intestinal metaplasia or atrophy. - Negative for Helicobacter pylori (properly controlled immunohistochemical stain performed). . B. Gastric mucosa, antral ulcer, endoscopic biopsy: - Moderate reactive gastropathy associated with a fibrotic lamina propria. - No active ulceration identified. - Negative for dysplasia or malignancy. . (IUV:configuration analyst; 09/10/2018) MBR/09/10/2018 . 02 Electronically signed: . Lidia Albright MD, Pathologist NPI- [id number] . 01 Gross description: . A. The specimen is received in formalin, labeled "Jennifer Dinero, random gastric BX" and consists of a fragment of soft rodriguez tissue measuring 0.6 x 0.3 x 0.1 cm which is entirely submitted in A1. . B. The specimen is received in formalin, labeled "Jennifer Dinero, BX antral ulcer" and consists of a fragment of soft rodriguez tissue measuring 0.6 x 0.3 x 0.2 cm which is entirely submitted in B1. (SDY; 09/09/2018) SYU/SYU . 02 Pathologist provided ICD-10: K29.50, K31.9 . 02 CPT . [address] [address] PATHOLOGY RPT PROCEDURE Name: JENNIFER DINERO E Room #: 226-P ADM IN .R.#: [id number] Admission: 09/07/18 Date of : 47 Discharge: Report #: [id number] Path Case #: [id number] Specimen Comment: A courtesy copy of this report has been sent to Specimen Comment: [phone], , . Specimen Comment: Report sent to ,DR PETERSON / DR UMANA Performed at: [address] [facility] [address], [place], [place] [id number] MD Fernando Franklin MD Phone: [phone] Performed at: [address] [facility] [id number] MD Lidia Albright MD Phone: [phone]
--- NOTE | 2018-09-10 17:39 | NUR ---
PT CONTINUES TO DO WELL THIS SHIFT. VANCO TROUGH DONE AND VANCOMYCIN ADMINISTERED. PAIN CONTINUES TO BE UNDER CONTROL. OTHERWISE NO NEW CONCERNS.
[2018-09-10 20:56] VITALS: BP 140/57
--- NOTE | 2018-09-11 05:05 | NUR ---
PATIENT ALERT AND ORIENTED X4, C/O PAIN X2, MED GIVEN. ACCUCHECK WAS 156, NO SS INSULIN GIVEN. JABIER WRAPS ON JABIER LOWER EDEMA. IV PATENT. UP AND ABOUT IN ROOM. SLEPT OFF AND ON DURING NIGHT.
[2018-09-11 07:45] LABS: CALCIUM 8.9 mg/dL (8.5-10.1); CREATININE 0.8 mg/dL (0.6-1.0); POTASSIUM 3.7 mmol/L (3.5-5.1)
[2018-09-11 08:45] VITALS: BP 142/65
--- NOTE | 2018-09-11 08:55 | NUR ---
ASSUMED PT CARE AT 0700. PT AWAKE,ALERT/ORIENTED X4. REPORTS PAIN IN BACK AND LEFT LEG 4/10. LEG WRAPS ARE DRY/INTACT. PT WOULD LIKE HOPSON OUT AND PO LASIX IF POSSIBLE. IV SITE LEAKING AND HAD TO BE PULLED. ASSESSMENT IS CHARTED. VITAL SIGNS STABLE. OTHERWISE NO NEW CONERNS OR COMPLAINTS. WILL CONTINUE WITH CURRENT CARE.
--- NOTE | 2018-09-11 08:56 | HC ---
[facility] [place] [address] CONSULTATION Name: ROHIT CARMONAVEDA Leigh Room #: 226-P [facility] IN M.R.#: [id number] Admission: 09/07/18 Attend Phys: Rahul Napier MD Discharge: Date of : 47 Report #: [id number] THIS REPORT FOR: //name// CC: Rahul Harden DATE OF SERVICE: 09/09/2018 REQUESTING PHYSICIAN: Corytaff. CHIEF COMPLAINT: Lower extremity cellulitis and edema with open ulcerations. HISTORY OF PRESENT ILLNESS: The patient is a 72-year-old white female who was admitted for acute on chronic congestive heart failure with associated lower extremity cellulitis, right greater than left. The patient states that over the past couple of weeks, she has had a 30-pound weight gain, with significant increase in lower extremity edema with associated weeping, right greater than left. The patient notes she started having redness in her lower extremities with the swelling, but had no actual fevers or chills. She came to the Emergency Department for evaluation of lower extremity edema and the weight gain. The patient was admitted for cellulitis of bilateral lower extremities as well as treatment of the congestive heart failure. Also of note, the patient supposedly has noted some tarry stools in the last few days, and GI has been consulted to evaluate that. The patient states the edema on her legs has been persistent for several years, but just worse in the past 2 weeks. The patient has seen Dr. Moreno in the past for venous insufficiency procedures. The patient states she has had her legs wrapped in the past as well. PAST MEDICAL HISTORY: Significant for cardiomyopathy, congestive heart failure, anemia, pulmonary hypertension. CURRENT MEDICATIONS: Multiple, I reviewed the patient's medication list. DRUG ALLERGIES: PENICILLIN. SOCIAL HISTORY: The patient does not smoke or drink alcohol. FAMILY HISTORY: Not pertinent to current medical condition. REVIEW OF SYSTEMS: CONSTITUTIONAL: The patient denies fevers or chills. NEUROLOGIC: The patient complains of overall generalized weakness, but no isolated weakness in arms or legs. EYES: No complaints. ENT: No complaints. CARDIAC: The patient complains of lower extremity edema without palpitations or [address] [address] CONSULTATION Name: VALERIA CARMONA Room #: 226-P [facility] IN [facility].#: [id number] Admission: 09/07/18 Attend Phys: Rahul Napier MD Discharge: Date of : 46 Report #: [id number] chest pain. RESPIRATORY: The patient had mild shortness of breath associated with congestive heart failure. Denies actual cough or wheezes. GASTROINTESTINAL: The patient denies nausea, vomiting, but had some dark stools recently. GENITOURINARY: The patient denies urgency or frequency. MUSCULOSKELETAL: No complaints. SKIN: There is weeping wound on the right lower extremity with mild to moderate increased erythema to bilateral lower extremities, right greater than left. PHYSICAL EXAMINATION: VITAL SIGNS: Temperature 36.8, pulse 73, respirations 20, BP 133/62. GENERAL: This is an alert and oriented x 3, obese white female who is in no obvious distress. HEENT: Normocephalic, atraumatic. Mucous membranes are somewhat dry. Pupils are round. Sclerae white. NECK: Supple, no obvious JVD. LUNGS: Slight diminished breath sounds heard throughout without wheezes. HEART: Regular with a 2/6 systolic ejection murmur. ABDOMEN: Obese, soft, otherwise nontender. EXTREMITIES: The patient moves all extremities without difficulty. Bilateral lower extremities reveal 3+ edema with increased erythema, warmth on the right leg and minimal erythema, warmth in the left leg. The right leg pretibial region is a small superficial wound, which is draining serous fluid without signs of overt infection or pus. There is no fluctuance. Distal neurovascular is otherwise intact. NEUROLOGIC: Cranial nerves 2-12 grossly intact. Motor and sensory grossly intact. The patient has 2+ dorsalis pedis pulses. LABORATORY DATA: White count 11.2, hemoglobin 8.7. Albumin is 3.0. IMPRESSION: 1. Bilateral lower extremity cellulitis, right greater than left. Overall, improving. 2. Acute on chronic congestive heart failure, overall improving. 3. By history, black tarry stools -- EGD pending today. 4. Generalized debility. 5. Mild protein calorie malnutrition, albumin 3.0. PLAN: At this time, the patient states she is tolerating lymphedema wraps in the past. We will consult ____ therapist to wrap the patient's leg, then home health nurse can continue wrapping when she goes home. I would be happy to follow her up in my clinic in the next 10-14 days. The patient was given one of my cards or she can continue to follow up with her primary care physician. We [address] [address] CONSULTATION Name: VALERIA CARMONA Room #: 226-P [facility] IN M.R.#: [id number] Admission: 09/07/18 Attend Phys: Rahul Napier MD Discharge: Date of : 46 Report #: [id number] will continue all other current medications and appreciate the ability to consult. <ELECTRONICALLY SIGNED> By: Hector Joseph MD 09/11/18 0856 [id number] [id number] Hector Joseph MD /nt
[2018-09-11] MEDS ORDERED: LASIX 80 MG TAB80 MG PO (13:54)
[2018-09-11] MEDS ORDERED: LASIX 40 MG TAB40 M2 PO (13:54)
--- NOTE | 2018-09-11 14:52 | HC ---
[facility] [place] [address] CONSULTATION Name: MATHEWVALERIA Room #: 226-P [facility] IN M.R.#: [id number] Admission: 09/07/18 Attend Phys: Rahul Napier MD Discharge: Date of : 46 Report #: [id number] THIS REPORT FOR: //name// CC: Rahul Harden REASON FOR CONSULTATION: Congestive heart failure. HISTORY OF PRESENT ILLNESS: The patient is a 72-year-old male with a history of permanent atrial fibrillation, morbid obesity, diastolic heart failure as well as diabetes and hypertension whom I follow as an outpatient. Back in June 2017, she was admitted with fluid overload. At that time, she underwent echocardiogram, which was essentially normal. She was diuresed and she has done well for the past year. She has really worked hard in losing a lot of weight and has been dieting and eating well. She reports that over the past several weeks, she has gained approximately 30 pounds. She cannot explain why this has happened. She reports that she has been very compliant with her low salt diet and has not been eating any salty foods. She denies any problems with chest pain or chest tightness. She has been experiencing exertional dyspnea. She did report that in July, she was going to take a shower and she stood up and felt lightheaded and passed out, came to but has not had further episodes. She is in the ER and has been given some IV diuretics and had a Herron placed. Her 12-lead EKG shows atrial fibrillation with a controlled ventricular response and no ischemic changes. She recently has noted some blood in her stools with some melena. The plan was to have her undergo an endoscopy. I discussed that since she is already here that we should have GI see her, we can hold her Pradaxa and potentially have her scoped here towards the end of the week. Her last dose of Pradaxa was last night. PAST MEDICAL HISTORY: As mentioned above. SOCIAL HISTORY: Does not smoke. FAMILY HISTORY: Noncontributory. ALLERGIES: Include PENICILLIN and AUGMENTIN. MEDICATIONS: Include losartan/HCTZ, glimepiride, insulin, Pradaxa 150 b.i.d., magnesium, metoprolol 25 a day, Lasix 40 a day, potassium 10 a day, inhalers, vitamin D3, guaifenesin, melatonin, Zanaflex, Krill oil, docusate, and MiraLax. PHYSICAL EXAMINATION: VITAL SIGNS: Temperature is 36.7, pulse 78, respiration 12, blood pressure is 150/52, sats are 99%. GENERAL: She is in no acute distress. Alert, oriented x 3. HEENT: Sclerae are anicteric. Oropharynx is clear. NECK: Supple, with no thyromegaly. [facility] [address] [place] [address] CONSULTATION Name: VALERIA CARMONA Lu Room #: 226-P ADM IN M.R.#: [id number] Admission: 09/07/18 Attend Phys: Rahul Napier MD Discharge: Date of : 46 Report #: [id number] HEART: Irregularly irregular. She does have elevated JVD. LUNGS: Clear to auscultation bilaterally with no wheezes, rhonchi. ABDOMEN: Obese, but nontender, no hepatosplenomegaly. EXTREMITIES: She has 2 to 3+ lower extremity edema with some redness on both sides. NEUROLOGIC: Cranial nerves 2-12 are grossly intact. EKG is as mentioned above. LABORATORY DATA: Hemoglobin is 10, white count is 10, platelets are 351. Chemistries: Sodium 139, potassium 4.1. BUN is 17, creatinine 0.8, alkaline phosphatase is 155. Her proBNP is 228, albumin is 3.6. TSH is 2.6. Her chest x-ray shows some mild cephalization suggestive of possible pulmonary edema. There are no infiltrates and there are no effusions noted. ASSESSMENT: 1. Diastolic heart failure. 2. Severe anasarca. 3. Diabetes mellitus. 4. Hypertension, poorly controlled. 5. Permanent atrial fibrillation. 6. Lower gastrointestinal bleeding with melena. In summary, the patient presents with significant anasarca, potentially due to diastolic heart failure. Surprisingly, her proBNP is pretty normal. We will aggressively diurese the patient. We will obtain an echocardiogram to evaluate LV size and function and also evaluate right-sided function. With regards to her hypertension, I will initiate lisinopril therapy to optimize her blood pressure. With regards to her melena, we will stop her Pradaxa and have GI decide if she needs to undergo an endoscopy while she is here in the hospital. Apparently, she had some respiratory issues with her last colonoscopy, so probably doing this with anesthesia in the hospital as the best option for her. We will continue to follow. <ELECTRONICALLY SIGNED> By: Ochoa Nava MD 09/11/18 1452 [id number] Ochoa Nava MD /nt
--- NOTE | 2018-09-11 17:27 | NUR ---
PT DOING WELL THIS SHIFT. URINATING WELL SINCE HOPSON REMOVED. ACCURATE OUTPUT BEING COLLECTED. PT AWARE URINE NEEDS TO BE MEASURED AND IS USING HAT IN TOILET. PAIN UNDER CONTROL WITH CURRENT REGIMINE. ALL MEDS BEING GIVEN ORAL, NO IV SITE. WILL CONTINUE CURRENT CARE.
[2018-09-11 21:36] VITALS: BP 146/54
--- NOTE | 2018-09-12 05:45 | NUR ---
patients cares were assumed at shift change. patient was assessed and meds were passed. patient upset tonight due to neighbors capnography was ringing so much. stated unable to sleep. patient has questions for the doctor as to why he changed the antibiotic and needs a rx for the ones she needs. hourly rounding was dome patient ambulated into the valerio x2. patient continues to be up adbil in her room for BRP'S. THE bed alarm is on and the bed is in a low and locked position
[2018-09-12 06:32] LABS: HEMATOCRIT 28.9 % (37.0-47.0); HEMOGLOBIN 9.1 gm/dL (12.0-15.0); MCH 23.4 pg (26.0-34.0); MCHC 31.4 g/dL (28.0-37.0); MCV 74.6 fL (80.0-100.0); RBC 3.87 mil/uL (4.20-5.00); RDW 21.2 % (10.5-14.5); WBC 7.9 thou/uL (4.0-11.0)
[2018-09-12 06:45] LABS: ALBUMIN 3.1 g/dL (3.4-5.0); CALCIUM 9.1 mg/dL (8.5-10.1); CREATININE 0.9 mg/dL (0.6-1.0); PHOSPHORUS 4.1 mg/dL (2.5-4.9); POTASSIUM 3.6 mmol/L (3.5-5.1)
[2018-09-12 08:02] VITALS: BP 121/46
[2018-09-12] MEDS ORDERED: ELIQUIS5 MG PO (09:40)
[2018-09-12] MEDS ORDERED: BACTRIM DS TAB1 EACH PO (09:40)
[2018-09-12] MEDS ORDERED: BACLOFEN 10MG T10 MG PO (09:57)
[2018-09-12] MEDS ORDERED: LASIX 40 MG TAB40 M1 PO ×2 (09:59)
[2018-09-12] MEDS ORDERED: K-DUR 20 MEQ T20 MEQ PO (09:59)
--- NOTE | 2018-09-12 11:17 | NUR ---
ASSUMED CARE OF PATIENT THIS MORNING. PATIENT IS ALERT AND ORIENTED X 4. SHE IS UP AD JENNIFER. PATIENT DOES NOT CURRENTLY HAVE AN IV. SHE WILL BE DISCHARGED LATER TODAY. JOSHUA'S LAST BOWEL MOVEMENT WAS 09/11/18. SHE DOES NOT CURRENTLE COMPLAIN OF ANY PAIN. SHE WAS ASSESSED THIS MORNING. SHE HAS AN IRREGULAR HEART RHYTHM, LOWER EXTREMITY EDEMA BILATERALLY, CLEAR LUNG SOUNDS, ACTIVE BOWEL SOUNDS. SHE IS CURRENTLY SITTING IN RECLINER WITH CALL LIGHT WITHIN REACH AND CALLS OUT APPROPRIATELY.
--- NOTE | 2018-09-12 11:42 | NUR ---
PATIENT BEING DISCHARGED HOME WITH HOME HEALTH. REVIEWED DISCHARGE INSTRUCTIONS WITH PATIENT. PATIENT IS GOING HOME WITH 5 PRESCRIPTIONS, AND EACH SCRIPT WAS REVIEWED WITH THE PATIENT AND CARENOTES WERE PRINTED AND SENT WITH THE PATIENT.
[2018-09-14 08:57] VITALS: BP 121/46
--- NOTE | 2018-09-14 09:57 | NUR ---
PT. DISCHARGED Friday09/12/18 FROM RM 226. DECIDED SHE IS NEEDING HH INSTEAD OF OUTPT.THERAPY. FAXED REFERRAL TO [facility] AND SPOKE WITH SHANELL IN ADM. AND THEY CAN ACCEPT PT. AND SEE HER TODAY. DCP NOTIFIED PT. OF HH AGENCY AND THEY WILL CALL HER WITH THE TIME OF VISIT. DC ORDERS/SUMMARY FAXED TO [facility].
== END 2018-09-12 11:45 | disposition home health service (06) | DRG 377 ==
LOC: ER 08:47 → 2N 10:42 → SICU 10:42 → EROBS 10:42 → 2N 14:44 → SICU 09-09 17:02
PROVIDERS: Emergency Medicine; Hospitalist; Internal Medicine Gastroenterology; Nurse Practitioner; ADMIT Internal Medicine
PROC: 0W3P8ZZ Control Bleeding in Gastrointestinal Tract, Via Natural or Artificial Opening Endoscopic (ICD-10-PCS; principal; 2018-09-09)
PROC: 0DB68ZX Excision of Stomach, Via Natural or Artificial Opening Endoscopic, Diagnostic (ICD-10-PCS; principal; 2018-09-09)
DX: K25.4 Chronic or unspecified gastric ulcer with hemorrhage (principal); I50.33 Acute on chronic diastolic (congestive) heart failure; J96.21 Acute and chronic respiratory failure with hypoxia; L03.116 Cellulitis of left lower limb; I42.9 Cardiomyopathy, unspecified; E44.1 Mild protein-calorie malnutrition; D62 Acute posthemorrhagic anemia; Z68.41 Body mass index [BMI] 40.0-44.9, adult; L03.115 Cellulitis of right lower limb; K29.71 Gastritis, unspecified, with bleeding; I27.20 Pulmonary hypertension, unspecified; D64.9 Anemia, unspecified; I48.2 Chronic atrial fibrillation; E66.01 Morbid (severe) obesity due to excess calories; E11.9 Type 2 diabetes mellitus without complications; K59.00 Constipation, unspecified; R13.10 Dysphagia, unspecified; G47.33 Obstructive sleep apnea (adult) (pediatric); J45.909 Unspecified asthma, uncomplicated; I87.2 Venous insufficiency (chronic) (peripheral); I11.0 Hypertensive heart disease with heart failure; D72.829 Elevated white blood cell count, unspecified; R31.9 Hematuria, unspecified; G25.81 Restless legs syndrome; G89.29 Other chronic pain; I70.8 Atherosclerosis of other arteries; Z88.1 Allergy status to other antibiotic agents; Z88.8 Allergy status to other drugs, medicaments and biological substances; Z88.0 Allergy status to penicillin; Z79.899 Other long term (current) drug therapy; Z86.010 Personal history of colon polyps; Z90.711 Acquired absence of uterus with remaining cervical stump; Z79.01 Long term (current) use of anticoagulants
CPT/HCPCS: 10081; 15002; 62110; 62900; 70005

== ENCOUNTER → 2018-10-12 | Outpatient (CLI) | payer OTHER, MEDICARE ==
[~2018-10-12] MED LIST changes: +BACLOFEN 10MG T10 MG PO; +BACTRIM DS TAB1 EACH PO; +COZAAR 25 MG TA25 M1 PO; +ELIQUIS5 MG PO; +K-DUR 20 MEQ T20 MEQ PO; +KAPSPARGO SPRIN25 MG PO; +LASIX 40 MG TAB40 M1 PO; +LASIX 40 MG TAB40 M2 PO; +LASIX 80 MG TAB80 MG PO; +REQUIP 0.25 M0.25 MG PO; +SENNA8.6 MG PO; +VITAMIN D31000 UNIT PO
== END ==
LOC: HYPER 12:12
DX: L03.116 Cellulitis of left lower limb (principal); L03.115 Cellulitis of right lower limb; L84 Corns and callosities; E11.51 Type 2 diabetes mellitus with diabetic peripheral angiopathy without gangrene; I11.0 Hypertensive heart disease with heart failure; I50.32 Chronic diastolic (congestive) heart failure; I89.0 Lymphedema, not elsewhere classified; I48.91 Unspecified atrial fibrillation; J44.9 Chronic obstructive pulmonary disease, unspecified; M19.90 Unspecified osteoarthritis, unspecified site; Z90.710 Acquired absence of both cervix and uterus

== ENCOUNTER → 2018-10-22 | Outpatient (CLI) | payer OTHER, MEDICARE | LOC: RAD 15:37 | DX: R06.02 Shortness of breath (principal); I50.30 Unspecified diastolic (congestive) heart failure ==

== ENCOUNTER → 2018-10-26 | Outpatient (CLI) | payer OTHER, MEDICARE | LOC: HYPER 07:30 | DX: L03.116 Cellulitis of left lower limb (principal); L03.115 Cellulitis of right lower limb; I89.0 Lymphedema, not elsewhere classified; E11.51 Type 2 diabetes mellitus with diabetic peripheral angiopathy without gangrene; E11.65 Type 2 diabetes mellitus with hyperglycemia; J45.998 Other asthma; I11.0 Hypertensive heart disease with heart failure; I50.32 Chronic diastolic (congestive) heart failure; J44.9 Chronic obstructive pulmonary disease, unspecified; I48.91 Unspecified atrial fibrillation; M19.90 Unspecified osteoarthritis, unspecified site; Z79.4 Long term (current) use of insulin; Z79.01 Long term (current) use of anticoagulants; Z79.84 Long term (current) use of oral hypoglycemic drugs ==

== ENCOUNTER → 2018-12-10 | Outpatient (CLI) | payer OTHER, MEDICARE | LOC: RAD 12:09 | DX: R06.02 Shortness of breath (principal); Z88.8 Allergy status to other drugs, medicaments and biological substances; Z88.0 Allergy status to penicillin; Z88.1 Allergy status to other antibiotic agents ==

== ENCOUNTER → 2019-01-21 | Outpatient (CLI) | payer OTHER, MEDICARE | LOC: HYPER 06:44 | DX: E11.621 Type 2 diabetes mellitus with foot ulcer (principal); L97.512 Non-pressure chronic ulcer of other part of right foot with fat layer exposed; L97.421 Non-pressure chronic ulcer of left heel and midfoot limited to breakdown of skin; I89.0 Lymphedema, not elsewhere classified; I48.91 Unspecified atrial fibrillation; I10 Essential (primary) hypertension; E11.51 Type 2 diabetes mellitus with diabetic peripheral angiopathy without gangrene; L84 Corns and callosities; M19.90 Unspecified osteoarthritis, unspecified site; R60.0 Localized edema; J44.9 Chronic obstructive pulmonary disease, unspecified; Z79.4 Long term (current) use of insulin; Z79.84 Long term (current) use of oral hypoglycemic drugs; Z79.01 Long term (current) use of anticoagulants ==

== ENCOUNTER → 2019-02-04 | Outpatient (CLI) | payer OTHER, MEDICARE | LOC: HYPER 06:46 | DX: E11.621 Type 2 diabetes mellitus with foot ulcer (principal); L97.411 Non-pressure chronic ulcer of right heel and midfoot limited to breakdown of skin; L97.512 Non-pressure chronic ulcer of other part of right foot with fat layer exposed; I11.0 Hypertensive heart disease with heart failure; I50.32 Chronic diastolic (congestive) heart failure; E11.51 Type 2 diabetes mellitus with diabetic peripheral angiopathy without gangrene; I48.91 Unspecified atrial fibrillation; I89.0 Lymphedema, not elsewhere classified; L84 Corns and callosities; M19.90 Unspecified osteoarthritis, unspecified site; R60.0 Localized edema; J44.9 Chronic obstructive pulmonary disease, unspecified; Z79.84 Long term (current) use of oral hypoglycemic drugs; Z79.01 Long term (current) use of anticoagulants; Z79.4 Long term (current) use of insulin ==

== ENCOUNTER → 2019-02-11 | Outpatient (CLI) | payer OTHER, MEDICARE | LOC: HYPER 06:49 | DX: E11.621 Type 2 diabetes mellitus with foot ulcer (principal); L97.512 Non-pressure chronic ulcer of other part of right foot with fat layer exposed; L84 Corns and callosities; E11.51 Type 2 diabetes mellitus with diabetic peripheral angiopathy without gangrene; E11.65 Type 2 diabetes mellitus with hyperglycemia; I89.0 Lymphedema, not elsewhere classified; I48.91 Unspecified atrial fibrillation; R60.0 Localized edema; I11.0 Hypertensive heart disease with heart failure; I50.9 Heart failure, unspecified; J44.9 Chronic obstructive pulmonary disease, unspecified; M19.90 Unspecified osteoarthritis, unspecified site; Z79.4 Long term (current) use of insulin; Z79.01 Long term (current) use of anticoagulants; Z79.84 Long term (current) use of oral hypoglycemic drugs ==

== ENCOUNTER → 2019-02-24 | Outpatient (CLI) | payer OTHER, MEDICARE | LOC: HYPER 06:52 | DX: E11.621 Type 2 diabetes mellitus with foot ulcer (principal); L97.512 Non-pressure chronic ulcer of other part of right foot with fat layer exposed; S81.802A Unspecified open wound, left lower leg, initial encounter; S91.301D Unspecified open wound, right foot, subsequent encounter; I89.0 Lymphedema, not elsewhere classified; I48.91 Unspecified atrial fibrillation; I10 Essential (primary) hypertension; L84 Corns and callosities; E11.51 Type 2 diabetes mellitus with diabetic peripheral angiopathy without gangrene; M19.90 Unspecified osteoarthritis, unspecified site; R60.0 Localized edema; J44.9 Chronic obstructive pulmonary disease, unspecified; J45.998 Other asthma; Z79.4 Long term (current) use of insulin; Z79.01 Long term (current) use of anticoagulants; Z79.84 Long term (current) use of oral hypoglycemic drugs; X58.XXXD Exposure to other specified factors, subsequent encounter; X58.XXXA Exposure to other specified factors, initial encounter; Y93.89 Activity, other specified; Y92.89 Other specified places as the place of occurrence of the external cause; Y99.8 Other external cause status ==

== ENCOUNTER → 2019-03-03 | Outpatient (CLI) | payer OTHER, MEDICARE | LOC: HYPER 03-02 07:25 | DX: E11.621 Type 2 diabetes mellitus with foot ulcer (principal); L97.512 Non-pressure chronic ulcer of other part of right foot with fat layer exposed; I11.0 Hypertensive heart disease with heart failure; I50.32 Chronic diastolic (congestive) heart failure; S81.802D Unspecified open wound, left lower leg, subsequent encounter; E11.51 Type 2 diabetes mellitus with diabetic peripheral angiopathy without gangrene; I89.0 Lymphedema, not elsewhere classified; I48.91 Unspecified atrial fibrillation; I10 Essential (primary) hypertension; L84 Corns and callosities; M19.90 Unspecified osteoarthritis, unspecified site; R60.0 Localized edema; J44.9 Chronic obstructive pulmonary disease, unspecified; Z79.4 Long term (current) use of insulin; Z79.01 Long term (current) use of anticoagulants; Z79.84 Long term (current) use of oral hypoglycemic drugs; X58.XXXD Exposure to other specified factors, subsequent encounter ==

== ENCOUNTER → 2019-03-10 | Outpatient (CLI) | payer OTHER, MEDICARE | LOC: HYPER 06:31 | DX: E11.621 Type 2 diabetes mellitus with foot ulcer (principal); L97.512 Non-pressure chronic ulcer of other part of right foot with fat layer exposed; S81.802D Unspecified open wound, left lower leg, subsequent encounter; E11.51 Type 2 diabetes mellitus with diabetic peripheral angiopathy without gangrene; I11.0 Hypertensive heart disease with heart failure; I50.32 Chronic diastolic (congestive) heart failure; I89.0 Lymphedema, not elsewhere classified; I48.91 Unspecified atrial fibrillation; L84 Corns and callosities; M19.90 Unspecified osteoarthritis, unspecified site; R60.0 Localized edema; J45.998 Other asthma; Z79.4 Long term (current) use of insulin; Z79.01 Long term (current) use of anticoagulants; Z79.84 Long term (current) use of oral hypoglycemic drugs; X58.XXXD Exposure to other specified factors, subsequent encounter ==

== ENCOUNTER 2019-04-13 19:29 | Inpatient (IN) | payer OTHER, MEDICARE ==
[~2019-04-13] VITALS: Ht 157.5 cm; Wt 108.1 kg
[2019-04-13 19:30] VITALS: BP 148/59
[2019-04-13 20:20] LABS: URINE BILIRUBIN NEGATIVE (Negative); URINE BLOOD 2+ (Negative); URINE CLARITY CLEAR; URINE COLOR YELLOW; URINE GLUCOSE-RANDOM* NEGATIVE (Negative); URINE KETONES NEGATIVE (Negative); URINE LEUKOCYTES-REFLEX NEGATIVE (Negative); URINE NITRITE-REFLEX NEGATIVE (Negative); URINE PROTEIN (DIPSTICK) NEGATIVE (Negative); URINE UROBILINOGEN 0.2 E.U./dl (0.2-1.0)
[2019-04-13] MEDS ORDERED: LANTUS SUBQ (20:25)
[2019-04-13] MEDS ORDERED: PROAIR HFA8.5 GM INH (20:31)
[2019-04-13] MEDS ORDERED: VITAMINC500 PO (20:32)
[2019-04-13] MEDS ORDERED: TYLENOL EXTRA500 MG PO (20:33)
[2019-04-13 20:35] LABS: BACTERIA-REFLEX None Seen /HPF (None Seen); CASTS None Seen /LPF (None Seen); CRYSTALS None Seen /LPF (None Seen); SQUAMOUS 0-3 Few /LPF (0-3); URINE RBC 3-10 Few /HPF (0-2); URINE WBC-REFLEX None Seen /HPF (0-5)
[2019-04-13 20:47] LABS: ABSOLUTE NEUTROPHILS 7.4 thou/uL (1.4-8.2); BASOPHILS 0.7 % (0.0-2.0); HEMATOCRIT 36.5 % (37.0-47.0); HEMOGLOBIN 12.2 gm/dL (12.0-15.0); LYMPHOCYTES 9.5 % (24.0-44.0); MCH 31.7 pg (26.0-34.0); MCHC 33.5 g/dL (28.0-37.0); MCV 94.6 fL (80.0-100.0); MONOCYTES 11.4 % (1.0-8.0); PLATELET COUNT 202 thou/uL (150-400); POLYS 72.4 % (36.0-66.0); RBC 3.86 mil/uL (4.20-5.00); RDW 13.3 % (10.5-14.5); WBC 10.3 thou/uL (4.0-11.0)
--- NOTE | 2019-04-13 21:26 | NUR ---
PT IS WANTING TO SIT ON THE CHAIR INSTEAD OF THE BED FOR A MOMENT
[2019-04-13] MEDS ORDERED: CLONAZEPAM 0.50.5 M1 PO (21:46)
[2019-04-13 21:48] LABS: CALCIUM 9.2 mg/dL (8.5-10.1); CREATININE 0.8 mg/dL (0.6-1.0); POTASSIUM 4.3 mmol/L (3.5-5.1)
[2019-04-13 21:53] LABS: ALBUMIN 3.6 g/dL (3.4-5.0); TOTAL BILIRUBIN 0.9 mg/dL (<0.1-1.0); TOTAL PROTEIN 7.5 g/dL (6.4-8.2)
--- NOTE | 2019-04-13 22:17 | NUR ---
US AT BEDSIDE
[2019-04-13 22:43] VITALS: BP 146/65
[2019-04-13 23:45] VITALS: BP 146/65
[2019-04-13 23:55] VITALS: BP 141/62
--- NOTE | 2019-04-14 03:13 | NUR ---
PT ARRIVED ON THE UNIT @234 FROM THE ER. PT A&OX4 WITH COMPLAINS OF URINARY FREQ, BLE REDNESS AND 1CM ULCER ON RT FOOT. ADM DONE, PT UP WITH PERSONAL WALKER. POC DONE AND PICTURES TAKEN WILL CONTINUE TO MONITOR TILL EOS.
[2019-04-14 04:00] VITALS: BP 149/52
--- NOTE | 2019-04-14 07:53 | EKG ---
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 : 1945 Requested By: Maria Washington Order Number: [id number] MD: Kvng Rose Measurements Intervals [place] Rate: 66 P: [place]: QRS: 13 QRSD: 97 T: 54 QT: 435 QTc: 456 Interpretive Statements Atrial fibrillation Poor R wave progression Compared to ECG 09/07/2018 09:32:35 Ventricular premature complex(es) no longer present Electronically Signed On 04-14-2019 7:53:48 CDT by Kvng Rose [email or web address] <ELECTRONICALLY SIGNED> By: Kvng Rose MD, [facility] 04/14/19 [phone] Kvng Rose MD, [facility] /EPI
[2019-04-14 08:05] VITALS: BP 140/72
--- NOTE | 2019-04-14 11:58 | NUR ---
ASSESSMENT-PT LIVES IN A REVERSE 1 09/09 STORY HOME. PT USES A ROLLER WALKER TO GET AROUND AND DOES HER OWN ADLS. THEY HAVE A DTR & NUNU IN THE AREA WITH 3 GRANDKIDS AGES 14,16 AND 18. SPOUSE DRIVES, SHE DOES NOT. SHE DOES THE LAUNDRY, HE DOES COOKING AND SHE IS ON NUTRI-SYSTEM. THEY HAVE A CLEANING LADY THAT COMES MONTHLY. PT HAS A BULKY WALKER WITH A SEAT IN THE BASEMENT BUT SHE IS CURRENTLY UNABLE TO GO DOWN THERE. SHE AND HER ARE DISCUSSING HIGHER TOILETS, WALK-IN SHOWER AND STAIRGLIDE. SHE WANTS ALL OF THESE BUT HE THINKS IT WOULD BE BETTER TO JUST MOVE. PT HAS HAD [facility] IN THE PAST BUT WOULD NOT WANT TO USE THEM AGAIN. FOLLOWING TO ASSSIT WITH DC PLANNING.
[2019-04-14 16:48] VITALS: BP 148/65
--- NOTE | 2019-04-14 18:43 | NUR ---
Assumed care of pt at 0700. Pt alert and oriented x4. C/o urinary frequency. Herron catheter placed. Pt has steady gait with a walker. Cellulitis bilateral extremities. Pain controlled with prn pain meds. Call light within reach. Will continue to monitor.
--- NOTE | 2019-04-15 04:28 | NUR ---
ASSUMED CARE OF PT @1900 PT ASSESSED AT START OFF SHIFT. A&OX4 AT THIS SHIFT. UP AD JENNIFER AND AMBULATES WITH PERSONAL WALKER. CELLUITIS ON BLE. C/O PAIN IN LOWER EXTREMITIES AND PAIN MEDS GIVEN FOR MANAGEMENT SE EMAR. ABX INFUSING AND POC DONE. WILL CONTINUE TO MONITOR TILL EOS.
[2019-04-15 04:41] VITALS: BP 143/56
[2019-04-15 04:56] LABS: HEMATOCRIT 35.5 % (37.0-47.0); HEMOGLOBIN 11.9 gm/dL (12.0-15.0); MCH 31.6 pg (26.0-34.0); MCHC 33.5 g/dL (28.0-37.0); MCV 94.5 fL (80.0-100.0); RBC 3.76 mil/uL (4.20-5.00); RDW 13.1 % (10.5-14.5)
[2019-04-15 05:11] LABS: CALCIUM 9.1 mg/dL (8.5-10.1); CREATININE 0.8 mg/dL (0.6-1.0); MAGNESIUM 1.9 mg/dL (1.8-2.4); POTASSIUM 3.5 mmol/L (3.5-5.1)
[2019-04-15 07:09] VITALS: BP 125/57
--- NOTE | 2019-04-15 10:57 | NUR ---
PATIENT DECLINED OT SERVICES STATING SHE IS INDEP WITH SELF CARE, SHE IS KNOWLEGEABLE OF UE STRENGTHENING FROM HER NECK SURGERIES. EVALUATION DEFERRED
--- NOTE | 2019-04-15 12:52 | NUR ---
Assess due to notification of diabetic foot ulcer. Admit with fever, bilateral lower extremity cellulitis, anasarca. Requires diuretic and wts highly variable with chronic lymphedema. BG up to 255, but better. has carb control diet order, eats high protein foods. Low nutrition risk
--- NOTE | 2019-04-15 15:26 | NUR ---
Assumed care of pt at 0700. Pt alert and oriented x4. Bilateral lower extremities wrapped. Herron catheter in place. Pt ambulating in hallway with walker. Pain controlled with prn pain meds. Neurology consulted. Call light within reach. Will continue to monitor.
[2019-04-15 15:31] VITALS: BP 134/63
[2019-04-15 19:39] VITALS: BP 155/65
--- NOTE | 2019-04-16 03:42 | NUR ---
PATIENT ALERT AND ORIENTED X4. C/O PAIN. MED GIVEN. UP IN HALLS WITH WALKER. HOPSON PATENT DARK ANTONINO URINE. ACCUCHECK WAS 236, RECEIVED 4 UNITS LISPRO INSULIN. SLEPT MOST OF NIGHT. WORKING TOWARDS POC.
[2019-04-16 03:54] VITALS: BP 139/72
[2019-04-16 04:04] LABS: CALCIUM 9.4 mg/dL (8.5-10.1); CREATININE 0.8 mg/dL (0.6-1.0); MAGNESIUM 1.9 mg/dL (1.8-2.4); POTASSIUM 3.7 mmol/L (3.5-5.1)
[2019-04-16 04:41] LABS: HEMATOCRIT 33.8 % (37.0-47.0); HEMOGLOBIN 11.4 gm/dL (12.0-15.0); MCHC 33.8 g/dL (28.0-37.0); MCV 94.7 fL (80.0-100.0); RBC 3.57 mil/uL (4.20-5.00); RDW 13.1 % (10.5-14.5); WBC 8.4 thou/uL (4.0-11.0)
[2019-04-16 07:20] VITALS: BP 147/64
--- NOTE | 2019-04-16 09:46 | HC ---
[facility] [place] [address] CONSULTATION Name: VALERIA CARMONA Lu Room #: 423-1 ADM IN M.R.#: [id number] Admission: 04/13/19 Attend Phys: Jordan Valenzuela MD Discharge: Date of : 46 Report #: [id number] THIS REPORT FOR: //name// CC: Jordan Harden DATE OF SERVICE: 04/14/2019 WOUND CARE CONSULTATION PERSONAL PHYSICIAN: Dr. Ochoa. CHIEF COMPLAINT: Bilateral lower extremity lymphedema and right heel plantar ulceration. HISTORY OF PRESENT ILLNESS: This is a 73-year-old white female with longstanding history of lymphedema in legs with swollen legs as well as a chronic ulcer on the plantar aspect of her right foot. The patient has been following in the wound clinic for both of these complaints, which we have been treating her right foot with medical dressings and using compression wraps on her legs to help with the swelling. The patient also does use home compression sequential pumps to aid in reducing the swelling. The patient is currently hospitalized now for fevers and urinary frequency as well as what they felt was bilateral cellulitis on her lower extremities. The patient states that she had noted that the swelling in her legs has gotten slightly worse in the past few days with increased erythema, warmth and tenderness. The patient states she also has had increased weight gain. The patient states that in the past 24 hours, she had felt like she had the flu and then started having shaking chills and a low-grade fever. The patient at that time decided to come to the Emergency Department to be evaluated. In the Emergency Department, it was felt that the patient had cellulitis of both lower extremities and was admitted to the hospital. I have been asked to assist in the care of the ulceration on the plantar aspect of the foot as well as the lower extremity edema. The patient denies any other new ulcerations or wounds. PAST MEDICAL HISTORY: Significant for type 2 diabetes, congestive heart failure, atrial fibrillation, chronic lymphedema, peripheral neuropathy, pulmonary hypertension. CURRENT MEDICATIONS: Current medicines are multiple. I reviewed the patient's medication list. DRUG ALLERGIES: PENICILLIN, CEPHALEXIN, AND CLINDAMYCIN. SOCIAL HISTORY: The patient lives at home with her , does not smoke or drink alcohol. [address] [address] CONSULTATION Name: VALERIA CARMONA Room #: 423-1 [facility] IN M.R.#: [id number] Admission: 04/13/19 Attend Phys: Jordan Valenzuela MD Discharge: Date of : 46 Report #: [id number] FAMILY HISTORY: Not pertinent to current medical condition. REVIEW OF SYSTEMS: CONSTITUTIONAL: The patient had fevers and chills at home in the past 24 hours. Denies any this morning. NEUROLOGIC: The patient complains of generalized weakness in arms and legs, but denies any isolated weakness. No headache. EYES: No complaints. ENT: No complaints. CARDIAC: The patient has chronic lower extremity edema consistent with lymphedema, worse in the past couple of days. No chest pain or palpitation. RESPIRATORY: The patient denies shortness of breath, cough or wheezes. GASTROINTESTINAL: The patient denies nausea, vomiting, abdominal pain. GENITOURINARY: The patient does complain of urgency, frequency, and dysuria. MUSCULOSKELETAL: No complaints. SKIN: There is increased erythema and warmth in bilateral lower extremities as well as a chronic ulceration on the plantar aspect of the right heel. PHYSICAL EXAMINATION: VITAL SIGNS: Temperature 36.8, pulse 66, respirations 18, BP 143/86. GENERAL: This is an alert and oriented x 3, pleasant, white female who is in mild distress secondary to symptoms. HEENT: Normocephalic, atraumatic. Mucous membranes are somewhat dry. Pupils are round. Sclerae white. NECK: Supple, nontender. LUNGS: Clear. HEART: Irregularly irregular. ABDOMEN: Obese, soft, nontender. EXTREMITIES: The patient moves all extremities without difficulty. Evaluation of bilateral lower extremity reveals increased erythema and warmth from the foot up to the mid pretibial region bilaterally. There is tenderness noted associated with this. Distal pulses are intact. Evaluation of left lower extremity reveals no signs of any open ulcerations. On the plantar aspect of the right heel, there is an open ulceration measuring approximately 0.5 x 0.5 x 0.2 cm depth. It is 100% granulated with no signs of actual purulence or drainage. Periwound is intact. There are no signs of tunneling or undermining. NEUROLOGIC: Cranial nerves 2-12 grossly intact. Motor and sensory grossly intact. LABORATORY DATA: White count 10.3, hemoglobin 12.2, BUN 22, creatinine 0.8, albumin 3.6. Lower extremity venous Doppler shows no signs of DVT bilaterally. IMPRESSION: 1. Chronic lymphedema, bilateral lower extremities. Now with bilateral cellulitis. [facility] [address] [facility] [place] [address] CONSULTATION Name: VALERIA CARMONA Room #: 423-1 ADM IN [facility].#: [id number] Admission: 04/13/19 Attend Phys: Jordan Valenzuela MD Discharge: Date of : 47 Report #: [id number] 2. Chronic ulceration, plantar aspect, right heel in a patient with diabetes, limited to breakdown the subcutaneous tissues. 3. Diabetes mellitus type 2 with neuropathy. 4. Urinary frequency. 5. Atrial fibrillation -- chronic. PLAN: At this time, we will place silver foam to the right heel ulcer and have this changed 3 times weekly. We will call lymphedema therapist for lymphedema wraps to be placed on the bilateral lower extremities. We will continue IV antibiotics per medical team management. I will make sure we maximize the patient's oral supplementation of protein for continued healing. The patient to elevate her legs as much as possible. Continue all other current medications. We will continue to follow the patient. <ELECTRONICALLY SIGNED> By: Hector Joseph MD 04/16/19 0946 [id number] [id number] Hector Joseph MD /nt
--- NOTE | 2019-04-16 10:35 | NUR ---
PATIENT CARE WAS ASSUMED AT 0715.PATIENT IS ALERT AND ORIENTED X4.PATIENT IS ABLE TO AMBULATE WITH WALKER.PT HAS HOPSON D/D.URINE ANTONINO COLOR.PT HAS BILATERAL WRAPS, BUT PT TAKES WRAPS OFF AT TIMES.PT HAS IV THAT IS PATENT AND SALINE LOCKED.CALL LIGHT,PHONE, AND PERSONAL BELONGINGS.
[2019-04-16] MEDS ORDERED: CYMBALTA30 MG PO (12:18)
[2019-04-16] MEDS ORDERED: DOXYCYCLINE 10100 MG PO (12:19)
[2019-04-16 14:32] VITALS: BP 147/64
--- NOTE | 2019-04-16 15:33 | NUR ---
PATIENT WAS DISCHARGED TO GO HOME WITH SELF CARE.PATIENT FINISHED LAST ROUND OF ANTIBIOTICS.IV WAS TAKEN OUT AND GAUZE WAS PLACED.PT WAS GIVEN EDUCATION ON NEW MEDS.PT/FAMILY DIDN'T HAVE ANY QUESTIONS AT THIS TIME.PATIENT WAS TAKEN OUT TO [facility] TRANSPORT IN W/C.
== END 2019-04-16 15:31 | disposition home or self-care (01) | DRG 602 ==
LOC: ER 19:29 → EROBS 22:09 → 4E 22:09 → ENTRNSPT 04-16 15:12 → EDTRNSPTSTS 04-16 15:14 → EDTRNSPT 04-16 15:26 → 4E 04-16 15:31
PROVIDERS: Physician Assistant; ADMIT Internal Medicine
DX: L03.116 Cellulitis of left lower limb (principal); E43 Unspecified severe protein-calorie malnutrition; Z68.41 Body mass index [BMI] 40.0-44.9, adult; L03.115 Cellulitis of right lower limb; R63.4 Abnormal weight loss; I89.0 Lymphedema, not elsewhere classified; I27.20 Pulmonary hypertension, unspecified; E11.621 Type 2 diabetes mellitus with foot ulcer; I50.9 Heart failure, unspecified; E11.42 Type 2 diabetes mellitus with diabetic polyneuropathy; R35.0 Frequency of micturition; I48.2 Chronic atrial fibrillation; Z66 Do not resuscitate; J44.9 Chronic obstructive pulmonary disease, unspecified; G25.3 Myoclonus; M79.7 Fibromyalgia; Z90.711 Acquired absence of uterus with remaining cervical stump; Z90.49 Acquired absence of other specified parts of digestive tract; Z88.1 Allergy status to other antibiotic agents; Z88.0 Allergy status to penicillin; Z88.8 Allergy status to other drugs, medicaments and biological substances
CPT/HCPCS: 10084

== ENCOUNTER → 2019-05-03 | Outpatient (CLI) | payer OTHER, MEDICARE ==
[~2019-05-03] MED LIST changes: +CLONAZEPAM 0.50.5 M1 PO; +CYMBALTA30 MG PO; +PROAIR HFA8.5 GM INH; +TYLENOL EXTRA500 MG PO; +VITAMINC500 PO
== END ==
LOC: HYPER 06:44
DX: E11.621 Type 2 diabetes mellitus with foot ulcer (principal); L97.512 Non-pressure chronic ulcer of other part of right foot with fat layer exposed; L84 Corns and callosities; I89.0 Lymphedema, not elsewhere classified; E11.51 Type 2 diabetes mellitus with diabetic peripheral angiopathy without gangrene; E11.65 Type 2 diabetes mellitus with hyperglycemia; I11.0 Hypertensive heart disease with heart failure; I50.32 Chronic diastolic (congestive) heart failure; I48.91 Unspecified atrial fibrillation; R60.0 Localized edema; J44.9 Chronic obstructive pulmonary disease, unspecified; M19.90 Unspecified osteoarthritis, unspecified site; Z79.4 Long term (current) use of insulin; Z79.01 Long term (current) use of anticoagulants; Z79.84 Long term (current) use of oral hypoglycemic drugs

== ENCOUNTER → 2019-11-17 | Outpatient (CLI) | payer OTHER, MEDICARE | LOC: SJCVCIMAG 15:19 | DX: M79.604 Pain in right leg (principal); R22.41 Localized swelling, mass and lump, right lower limb ==

== ENCOUNTER → 2019-12-08 | Outpatient (CLI) | payer OTHER, MEDICARE | LOC: HYPER 10:17 | DX: L03.116 Cellulitis of left lower limb (principal); I89.0 Lymphedema, not elsewhere classified; E11.51 Type 2 diabetes mellitus with diabetic peripheral angiopathy without gangrene; I48.91 Unspecified atrial fibrillation; I50.32 Chronic diastolic (congestive) heart failure; J44.9 Chronic obstructive pulmonary disease, unspecified; M19.90 Unspecified osteoarthritis, unspecified site; Z79.4 Long term (current) use of insulin; Z79.01 Long term (current) use of anticoagulants ==

== ENCOUNTER → 2020-07-03 | Outpatient (CLI) | payer OTHER, MEDICARE | LOC: LAB 08:34 | PROVIDERS: ATTEND Family Medicine | DX: Z20.828 Contact with and (suspected) exposure to other viral communicable diseases (principal) ==

== ENCOUNTER → 2020-08-08 | Outpatient (CLI) | payer OTHER, MEDICARE | LOC: SJCVC 14:27 | PROVIDERS: ATTEND Internal Medicine Cardiovascular Disease | DX: I48.91 Unspecified atrial fibrillation (principal); R94.31 Abnormal electrocardiogram [ECG] [EKG]; I11.0 Hypertensive heart disease with heart failure; I50.9 Heart failure, unspecified; E11.9 Type 2 diabetes mellitus without complications; E66.9 Obesity, unspecified; G47.33 Obstructive sleep apnea (adult) (pediatric); Z79.899 Other long term (current) drug therapy ==

== ENCOUNTER → 2020-09-15 | Outpatient (CLI) | payer OTHER | LOC: CAT 10:44 | PROVIDERS: ATTEND Family Medicine | DX: Z13.6 Encounter for screening for cardiovascular disorders (principal); I25.10 Atherosclerotic heart disease of native coronary artery without angina pectoris; E78.00 Pure hypercholesterolemia, unspecified ==

== ENCOUNTER → 2021-03-08 | Outpatient (CLI) | payer OTHER, MEDICARE | LOC: HYPER 08:52 | PROVIDERS: ATTEND Emergency Medicine | DX: E11.621 Type 2 diabetes mellitus with foot ulcer (principal); L97.521 Non-pressure chronic ulcer of other part of left foot limited to breakdown of skin; L84 Corns and callosities; E66.01 Morbid (severe) obesity due to excess calories; I48.91 Unspecified atrial fibrillation; E11.51 Type 2 diabetes mellitus with diabetic peripheral angiopathy without gangrene; I50.32 Chronic diastolic (congestive) heart failure; J44.9 Chronic obstructive pulmonary disease, unspecified; I89.0 Lymphedema, not elsewhere classified; M19.90 Unspecified osteoarthritis, unspecified site; Z90.49 Acquired absence of other specified parts of digestive tract; Z90.710 Acquired absence of both cervix and uterus; Z79.4 Long term (current) use of insulin ==

== ENCOUNTER → 2021-10-31 | Outpatient (CLI) | payer OTHER, MEDICARE | LOC: BC 12:38 | DX: Z12.31 Encounter for screening mammogram for malignant neoplasm of breast (principal); N64.59 Other signs and symptoms in breast ==